=== PATIENT | female | born 1975 | race African-American/Black ===

== ENCOUNTER 2018-01-30 14:07 | Inpatient (IN) | payer OTHER ==
[~2018-01-30 14:07] MED LIST: cloNIDine-TTS 0.3 MG /24 HRS PATCH.TDWK TD SCH
--- NOTE | 2018-01-30 15:56 | PDOC ---
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 Patient states that this is associated with pain in the right lower aspect of her chest. Her shortness of breath is worsened with laying down. She denies fevers, chills, nausea, vomiting. Denies CHF history. Denies leg swelling. Patient states that she has been compliant with her dialysis and is at her dry weight. Past History - Past Medical History Allergies/Adverse Reactions: Allergies Allergy/AdvReac Type Severity Reaction Status Date / Time amoxicillin Allergy Rash Verified 01/30/18 14:26 COPD: No DVT: Yes (PE) Dialysis: Yes () GI Disorders: Yes (ESRD) HTN: Yes Other medical history: LUPUS - Suicide/Smoking/Psychosocial Hx Smoking History: Never smoked Review of Systems - Review of Systems Comments:: 01/30/18 15:54 GENERAL/CONSTITUTIONAL: No fever or chills. No weakness. HEAD, EYES, EARS, NOSE AND THROAT: No change in vision. No sore throat. CARDIOVASCULAR: Positive for chest pain and shortness of breath RESPIRATORY: No cough, wheezing, or hemoptysis. GASTROINTESTINAL: No nausea, vomiting, diarrhea or constipation. GENITOURINARY: No dysuria, frequency, or change in urination. MUSCULOSKELETAL: No joint or muscle swelling or pain. No neck or back pain. SKIN: No rash NEUROLOGIC: No headache, vertigo, loss of consciousness, or change in strength/ sensation. ENDOCRINE: No increased thirst. No abnormal weight change HEMATOLOGIC/LYMPHATIC: No anemia, easy bleeding, or history of blood clots. ALLERGIC/IMMUNOLOGIC: No hives or skin allergy. *Physical Exam - Vital Signs Last Vital Signs Temp Pulse Resp BP Pulse Ox 97.6 F 67 19 142/79 100 01/30/18 14:26 01/30/18 14:26 01/30/18 14:26 01/30/18 14:26 01/30/18 14:26 - Physical Exam Comments: 01/30/18 15:56 GENERAL: Awake, alert, and fully oriented, in no acute distress HEAD: No signs of trauma, normocephalic, atraumatic EYES: PERRLA, EOMI, sclera anicteric, conjunctiva clear ENT: Auricles normal inspection, hearing grossly normal, nares patent, oropharynx clear without exudates. Moist mucosa NECK: Normal ROM, supple, no lymphadenopathy, JVD, or masses LUNGS: No distress, speaks full sentences, clear to auscultation bilaterally HEART: Regular rate and rhythm, normal S1 and S2, no murmurs, rubs or gallops, peripheral pulses normal and equal bilaterally. ABDOMEN: Soft, nontender, normoactive bowel sounds. No guarding, no rebound. No masses EXTREMITIES: Normal inspection, Normal range of motion, no edema. No clubbing or cyanosis. NEUROLOGICAL: Cranial nerves II through XII grossly intact. Normal speech, normal gait, no focal sensorimotor deficits SKIN: Warm, Dry, normal turgor, no rashes or lesions noted. 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 Bed side ultrasound shows pleural effusion on right side. Will workup with cardiac workup. DDx includes, but is not limited to: CHF, pneumonia, cancer. 01/30/18 17:05 CXR shows possible pleural effusion. Laboratory Tests 01/30/18 01/30/18 01/30/18 15:30 15:30 15:30 WBC 6.3 Hgb 11.3 Plt Count 311 INR 1.35 H Potassium Creatinine Troponin I Serum , Qual Negative 01/30/18 15:30 WBC Hgb Plt Count INR Potassium 5.0 Creatinine 8.4 H* Troponin I < 0.02 Serum , Qual CBC normal. INR subtherapeutic. Serum preg negative. CMP shows ESRD, K is normal. Troponin is negative. Given subtherapeutic INR, will do CTA, patient will be dialyzed tomorrow. 01/30/18 19:[address] Maciel. *DC/Admit/Observation/Transfer Diagnosis at time of Disposition: Shortness of breath - Discharge Dispostion Condition at time of disposition: Stable - Referrals Referrals: Nahomy Simon [Primary Care Provider] - - Patient Instructions - Post Discharge Activity
[2018-01-30 16:13] LABS: HEMATOCRIT 33.9 % (32.4-45.2); HEMOGLOBIN 11.3 GM/dL (10.7-15.3); MCH 30.8 pg (25.7-33.7); MCHC 33.3 g/dl (32.0-36.0); MEAN CELL VOLUME 92.5 fl (80-96); PLATELET COUNT 311 K/MM3 (134-434); RBC 3.66 M/mm3 (3.60-5.2); RDW 14.9 % (11.6-15.6); WHITE BLOOD COUNT 6.3 K/mm3 (4.0-10.0)
[2018-01-30 16:25] LABS: INR 1.35 (0.82-1.09); PROTHROMBIN TIME (PATIENT) 15.3 SEC (9.7-13.0)
[2018-01-30 16:37] LABS: ALBUMIN 3.2 g/dl (3.4-5.0); ANION GAP 12 (8-16); BILIRUBIN,TOTAL 0.8 mg/dL (0.2-1.0); BLOOD UREA NITROGEN 44 mg/dL (7-18); CALCIUM 8.4 mg/dL (8.5-10.1); CHLORIDE 99 mmol/L (98-107); CO2 26 mmol/L (21-32); GLUCOSE,RANDOM 93 mg/dL (74-106); SGPT/ALT 21 U/L (12-78); SODIUM 137 mmol/L (136-145); TOT PROT 7.2 g/dl (6.4-8.2)
[2018-01-30 16:42] LABS: ALK PHOS 146 U/L (45-117)
[2018-01-30 16:47] LABS: MAGNESIUM 2.3 mg/dL (1.8-2.4)
[2018-01-30 16:48] LABS: SGOT/AST 30 U/L (15-37)
[2018-01-30 16:49] LABS: CREATININE 8.4 mg/dL (0.55-1.02)
[2018-01-30 16:52] LABS: ANISOCYTOSIS 1+; MACROCYTOSIS 1+; PLATELET ESTIMATE ADEQUATE
--- NOTE | 2018-01-30 16:54 | PDOC ---
Attending Attestation - HPI HPI: 01/30/18 17:11 The patient is a 42 year old female with history of lupus, hypertension, ESRD on HD [facility], PE with right pulmonary infarct s/p right lobectomy who presents to the ED complaining of shortness of breath that began last night. The patient states she has been experiencing intermittent chest pain for several days, resolved over the past 2 days. Chest pain began while she was resting doing nothing in particular. Last night, she began to notice shortness of breath that is worse with lying flat. She says it is somewhat similar with her past PE, although she experienced chest pain with her past PE. No chest pain today. The patient denies fever or chills. She denies nausea, vomiting, or diarrhea. States she is at her dry weight. - Physicial Exam PE: 01/30/18 17:15 Vitals: Triage vital signs reviewed General Appearance: No acute distress, well nourished, well developed Head: Atraumatic Eyes: Pupils equal reactive round, extraocular movement intact Neck: Supple; No nuchal rigidity Chest Wall: Nontender Cardiac: Regular rate and rhythm, no murmurs, no rubs, no gallops Lungs: Clear to auscultation bilaterally with mildly decreased breath sounds on the right side. Abdomen: Soft, nondistended, normal bowel sounds, nontender to palpation Extremities: Full range of motion to all extremities, no cyanosis, clubbing, or edema Skin: Warm and dry, no rashes or lesions, no rash, no petechiae Neuro: AOX3; Cranial Nerves 2-12 grossly intact, Strength intact to all extremities, Sensation intact to all extremities, gait normal Psych: Normal mood, normal affect - Medical Decision Making 01/30/18 17:16 The patient is a 42 year old female with history of lupus, hypertension, ESRD on HD [facility], PE with right pulmonary infarct s/p right lobectomy who presents to the ED complaining of shortness of breath that began last night. Documentation prepared by Jodie Nelson, acting as emergency medical service coordinator for Cesar Mathews MD. <Jodie Nelson - Last Filed: 01/30/18 17:11> - Resident Resident Name: Paolo Valdez - ED Attending Attestation I have performed the following: I have examined & evaluated the patient, The case was reviewed & discussed with the resident, I agree w/resident's findings & plan, Exceptions are as noted - Medical Decision Making 01/30/18 18:26 Right-sided pleural effusion noted on chest x-ray. Given subtherapeutic INR decision made to perform CTA to rule out PE CTA pending. to follow up and dispo 01/30/18 19:01 <Cesar Mathews - Last Filed: 01/30/18 19:02>
--- NOTE | 2018-01-30 19:14 | PDOC ---
*Physical Exam - Vital Signs Last Vital Signs Temp Pulse Resp BP Pulse Ox 97.6 F 64 18 159/77 98 01/30/18 14:26 01/30/18 17:52 01/30/18 17:52 01/30/18 17:52 01/30/18 17:52 ED Treatment Course - LABORATORY CBC & Chemistry Diagram: 01/30/18 15:30 01/30/18 15:30 - ADDITIONAL ORDERS Additional order review: Laboratory Results 01/30/18 01/30/18 01/30/18 15:30 15:30 15:30 PT with INR 15.30 H INR 1.35 H Sodium 137 Potassium 5.0 Chloride 99 Carbon Dioxide 26 Anion Gap 12 BUN 44 H Creatinine 8.4 H* Creat Clearance w eGFR 5.17 Random Glucose 93 Calcium 8.4 L Magnesium 2.3 Total Bilirubin 0.8 AST 30 ALT 21 Alkaline Phosphatase 146 H Creatine Kinase 106 Troponin I < 0.02 Total Protein 7.2 Albumin 3.2 L Serum , Qual Negative 01/30/18 15:30 RBC 3.66 MCV 92.5 MCHC 33.3 RDW 14.9 MPV 8.0 Neutrophils % No Result Required. Lymphocytes % No Result Required. 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 Signed out to me in stable condition pending results of CT chest for PE which only demonstrated a moderate right sided pleural effusion. Will treat with Vanc, Aztreonam, and admit to hospitalist. 01/30/18 20:26 *DC/Admit/Observation/Transfer Diagnosis at time of Disposition: Shortness of breath - Discharge Dispostion Condition at time of disposition: Stable - Referrals Referrals: Nahomy Simon [Primary Care Provider] - - Patient Instructions - Post Discharge Activity
[2018-01-30] MEDS ORDERED: VANCOMYCIN 1,000 MG in DEXTROSE 5%-WATER - 250 ML IVPB ONE (20:20)
[2018-01-30] MEDS ORDERED: AZTREONAM 1 GM VIAL (RESTRICTED TO ID) IVPB ONE (20:21)
--- NOTE | 2018-01-30 20:42 | EKG ---
Test Reason : Blood Pressure : / mmHG Vent. Rate : 069 BPM Atrial Rate : 069 BPM P-R Int : 242 ms QRS Dur : 094 ms QT Int : 452 ms P-R-T Axes : 059 074 -37 degrees QTc Int : 484 ms SINUS RHYTHM WITH 1ST DEGREE A-V BLOCK NONSPECIFIC T WAVE ABNORMALITY PROLONGED QT ABNORMAL ECG NO PREVIOUS ECGS AVAILABLE Confirmed by ELSY BANEGAS, MOE ([id number]) on 01/30/2018 8:42:12 PM Referred By: Confirmed By:MOE CHIN MD
[2018-01-30] MEDS ORDERED: NADOLOL 40 MG TABLET (FP) PO SCH (20:45)
[2018-01-30] MEDS ORDERED: LOSARTAN POTASSIUM 50 MG TABLET (FP) PO ONE (20:45)
[2018-01-30] MEDS ORDERED: VANCOMYCIN 1 GRAM (PRE-DOCKED) 1,000 MG/250 ML BAG IVPB ONE (20:56)
[2018-01-30] MEDS ORDERED: LOSARTAN POTASSIUM 25 MG TABLET ONE (20:56)
--- NOTE | 2018-01-30 21:39 | HP ---
CHIEF COMPLAINT: SOB PCP:Dr. Bonilla Client Executive: Dr. Quesada Dialysis center: [facility] for dialysis HISTORY OF PRESENT ILLNESS: 42 yr old woman with Lupus, HTN, ESRD on HD s/p failed living donor transplant( [id number]), hx of PE 2013 complicated by pulmonary infarct requiring right lobectomy in 2013 presents with few days of SOB. Started around Wednesday/ , worse when laying down. Not at sitting position, and no change with exercise tolerance. completed last HD on Wednesday without incident. Has been having repeated nasal staph infections about every 2-3 weeks for past 2 months being treated with 10-day courses of ceflacor by business objects consultant. recent increase in anti-HTN meds due to uncontrolled elevated blood pressure No fevers, cough, chest pain, back pain, wheezing. underwent pre-op workup(1-2 months ago) at [facility] to be placed on transplant list, including echo which she recalls as being normal. ER course was notable for: (1) CTA (2) CXY Recent Travel: none PAST MEDICAL HISTORY: Lupus HTN PE ESRD on HD since , received living donor transplant in 2000 when she went off HD, was placed back on HD in 2009 due to renal failure. not anuric, makes small amount of urine PAST SURGICAL HISTORY: right lobectomy kidney transplant @ [facility] in 2000 Social History: Smoking: denies Alcohol:denies Drugs: denies Family History: mother with lupus and HTN, grandmother with DM. grandmother with unknown type of cancer. denies coagulopathic disorders in the family Allergies amoxicillin Allergy (Verified 01/30/18 14:26) Rash HOME MEDICATIONS: Home Medications Medication Instructions Recorded Cinacalcet HCl [Sensipar] 30 mg PO HS 01/30/18 Clonidine Patch [Catapres Tts 0.3 mg TD WEEKLY 01/30/18 Patch -] Losartan Potassium [Cozaar -] 50 mg PO BID 01/30/18 Methylprednisolone [Medrol -] 4 mg PO HS 01/30/18 Nadolol 40 mg PO DAILY 01/30/18 Nifedipine [Nifedipine ER] 60 mg PO DAILY 01/30/18 Warfarin Na [Coumadin] 5 mg PO HS 01/30/18 REVIEW OF SYSTEMS CONSTITUTIONAL: Absent: fever, chills, diaphoresis, generalized weakness, malaise, loss of appetite, weight change HEENT: Present: one episode of difficulty swallowing to solids last week, no repeat episodes Absent: rhinorrhea, nasal congestion, throat pain, throat swelling,mouth swelling, eye pain, visual changes CARDIOVASCULAR: Absent: chest pain, syncope, palpitations, irregular heart rate, lightheadedness , peripheral edema RESPIRATORY: Present: orthopnea Absent: cough, shortness of breath, dyspnea with exertion, wheezing, stridor, hemoptysis GASTROINTESTINAL: Absent: abdominal pain, abdominal distension, nausea, vomiting, diarrhea, constipation, melena, hematochezia GENITOURINARY: Absent: dysuria, frequency, urgency, hesitancy, hematuria, flank pain, genital pain MUSCULOSKELETAL: Absent: myalgia, arthralgia, joint swelling, back pain, neck pain SKIN: Absent: rash, itching, pallor HEMATOLOGIC/IMMUNOLOGIC: Present: frequent infections Absent: easy bleeding, easy bruising, lymphadenopathy, ENDOCRINE: Absent: unexplained weight gain, unexplained weight loss, heat intolerance, cold intolerance NEUROLOGIC: Absent: headache, focal weakness or paresthesias, dizziness, unsteady gait, seizure, mental status changes, bladder or bowel incontinence PHYSICAL EXAMINATION Vital Signs - 24 hr 01/30/18 01/30/18 14:26 17:52 Temperature 97.6 F Pulse Rate 67 Pulse Rate [ 64 Apical] Respiratory 19 18 Rate Blood Pressure 142/79 Blood Pressure 159/77 [Left Calf] O2 Sat by Pulse 100 98 Oximetry (%) GENERAL: Awake, alert, and fully oriented, in no acute distress. HEAD: Normal with no signs of trauma. EYES: Pupils equal, round and reactive to light, extraocular movements intact, sclera anicteric, conjunctiva clear. No lid lag. EARS, NOSE, THROAT: Ears normal, nares patent, oropharynx clear without exudates. Moist mucous membranes. NECK: Normal range of motion, supple without lymphadenopathy, JVD, or masses. LUNGS: Breath sounds equal, clear to auscultation bilaterally. No wheezes, and no crackles. No accessory muscle use. HEART: Regular rate and rhythm, normal S1 and S2 without murmur, rub or gallop. ABDOMEN: Soft, nontender, not distended, normoactive bowel sounds, no guarding, no rebound, no masses. No hepatomegaly or splenomegaly. rlq fullness - location of transplant kidney MUSCULOSKELETAL: Normal range of motion at all joints. No bony deformities or tenderness. No CVA tenderness. UPPER EXTREMITIES: 2+ radial pulses, warm, well-perfused. No cyanosis. No clubbing. No peripheral edema. left arm with palpabe thrill and bruit at HD access LOWER EXTREMITIES: 2+ dp pulses, warm, well-perfused. No calf tenderness. No peripheral edema. NEUROLOGICAL: Cranial nerves II-XII intact. Normal speech.facial symmetry PSYCHIATRIC: Cooperative. Good eye contact. Appropriate mood and affect. SKIN: Warm, dry, normal turgor, no rashes or lesions noted, normal capillary refill. Laboratory Results - last 24 hr 01/30/18 01/30/18 01/30/18 15:30 15:30 15:30 WBC 6.3 RBC 3.66 Hgb 11.3 Hct 33.9 MCV 92.5 MCH 30.8 MCHC 33.3 RDW 14.9 Plt Count 311 MPV 8.0 Total Counted 100 Neutrophils % No Result Required. Neutrophils % (Manual) 61.0 Lymphocytes % No Result Required. Lymphocytes % (Manual) 18.0 Monocytes % (Manual) 18 H Eosinophils % (Manual) 1.0 Basophils % (Manual) 2.0 Nucleated RBC % 0 Differential Comment Man diff performed Platelet Estimate Adequate Platelet Comment Few giant plts noted Anisocytosis 1+ Macrocytosis 1+ PT with INR 15.30 H INR 1.35 H Sodium Potassium Chloride Carbon Dioxide Anion Gap BUN Creatinine Creat Clearance w eGFR Random Glucose Calcium Magnesium Total Bilirubin AST ALT Alkaline Phosphatase Creatine Kinase Troponin I Total Protein Albumin Serum , Qual Negative 01/30/18 15:30 WBC RBC Hgb Hct MCV MCH MCHC RDW Plt Count MPV Total Counted Neutrophils % Neutrophils % (Manual) Lymphocytes % Lymphocytes % (Manual) Monocytes % (Manual) Eosinophils % (Manual) Basophils % (Manual) Nucleated RBC % Differential Comment Platelet Estimate Platelet Comment Anisocytosis Macrocytosis PT with INR INR Sodium 137 Potassium 5.0 Chloride 99 Carbon Dioxide 26 Anion Gap 12 BUN 44 H Creatinine 8.4 H* Creat Clearance w eGFR 5.17 Random Glucose 93 Calcium 8.4 L Magnesium 2.3 Total Bilirubin 0.8 AST 30 ALT 21 Alkaline Phosphatase 146 H Creatine Kinase 106 Troponin I < 0.02 Total Protein 7.2 Albumin 3.2 L Serum , Qual Active Medications Cinacalcet (Sensipar -) 30 mg PO HS SAE Clonidine HCl (Catapres Tts Patch -) 0.3 mg TD Estrada@1000 SAE Losartan Potassium (Cozaar -) 50 mg PO BID SAE Methylprednisolone (Medrol -) 4 mg PO HS SAE Nadolol (Corgard -) 40 mg PO DAILY [facility] Last Admin: 01/30/18 21:00 Dose: 40 mg Nadolol (Corgard -) 40 mg PO DAILY SAE Nifedipine (Procardia Xl -) 60 mg PO DAILY [facility] ASSESSMENT/PLAN: 42 yr old woman with lupus, hx of PE, on HD presents with orthopnea found to have right-sided pleural effusion. #pleural effusion - unclear etiology - await full report of CTA - IR consulted for diagnotic tap - hold full AC, warfarin and heparin drip- concern that this is hemothorax in pt on warfarin and likely receiving heparin during dialysis, high risk for bleeding - will need to call dialysis center or business objects consultant to find out whether heparin was given with HD which may provide information on etiology of hemothorax - incentive spirometer to prevent atelectasis - received Abx in ED, monitor off abs for now, pt is afebrile, no leucocytosis, no s/s of infectious process, blood cx drawn in ED #Hx of PE on warfarin - currently subtherapeutic - call pcp or nephro for previous INR - hold therapeutic AC for now # Lupus - medrol 4mg po qHS daily #HTN - uncontrolled - continue clonidine patch 0.3mg qweekly, just placed recent patch on Wednesday - cozaar 50mg po BID - nadolol 40mg po daily - procardia xl 60mg po daily #ESRD on HD- Abak-sdnps-Hjp - consult dr. hall - sensipar 30mg po HS #DVT prophyaxis - scd's when in bed and hep tid subq #Diet: renal, low sodium Code status: full code Healthcare proxy - verbally designated to me; Mother (1)Payton Ta [phone], (2)Uncle [phone] offered HIV tested, pt declined, she was tested with pre-op work-up a [facility] recently and was negative Visit type - Emergency Visit Emergency Visit: Yes ED Registration Date: 01/30/18 Care time: The patient presented to the Emergency Department on the above date and was hospitalized for further evaluation of their emergent condition. - New Patient This patient is new to me today: Yes Date on this admission: 01/30/18 - Critical Care Critical Care patient: No Hospitalist Screening - Colonoscopy Questionnaire Colonoscopy Questionnaire: Colonoscopy Questionnaire - Patient: 50 - 75 years old and never had a screening colonoscopy: Unknown History of colon or rectal polyps, or CA: Unknown History of IBD, Crohn's disease or UC: Unknown History of abdominal radiation therapy as a child: Unknown - Relative: 1 with colon or rectal CA, or polyps at age 60 or younger: Unknown Colon or rectal CA diagnosed at age 45 or younger: Unknown Multiple relatives with colon or rectal CA: Unknown - Outcome: Screening Result: Negative Screen
--- NOTE | 2018-01-30 22:24 | PN ---
Teaching Attending Note Name of Resident: Jose Bowman ATTENDING PHYSICIAN STATEMENT I saw and evaluated the patient. I reviewed the resident's note and discussed the case with the resident. I agree with the resident's findings and plan as documented. SUBJECTIVE: Patient is a 42 year old woman with a chief complaint of SOB for 5 days. 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 Has been on coumadin. There has been associated intermittent chest pain and orthopnea. She denies fever or chills. She denies nausea, vomiting, or diarrhea. In the ER, CT scan showed right side pleaural effusion. OBJECTIVE: Alert and in no acute respiratory distress. Vital Signs Period Temp Pulse Resp BP Sys/William Pulse Ox Last 24 Hr 97.6 F 64-67 18-19 142-159/77-79 98-100 HEENT: No Jaundice, eye redness or discharge, PERRLA, EOMI. External ears are normal and hearing is grossly intact. No nasal discharge. Neck: Supple, nontender. No palpable adenopathy or thyromegaly. No JVD Chest: Good effort. Diminished breath sounds in right lung. Heart: Regular. No S3, rub or murmur Abdomen: Not distended, soft, nontender and no HSM. No rebound or guarding. Normoactive bowel sounds. Ext: Peripheral pulses intact. No leg edema. Left upper arm AV fistula with good thrill and bruit. Skin: Warm and dry. No petechiae, rash or ecchymosis. Neuro: Alert. Oriented x3. CN 2-12 grossly intact. Sensation grossly intact in all four extremities and DTR are symmetric. Current Medications Generic Name Dose Route Start Last Admin Trade Name Freq PRN Reason Stop Dose Admin Cinacalcet 30 mg 01/30/18 22:00 Sensipar - PO HS SAE Clonidine HCl 0.3 mg 01/30/18 10:00 Catapres Tts Patch - TD Estrada@1000 SAE Losartan Potassium 50 mg 01/30/18 22:00 Cozaar - PO BID SAE Methylprednisolone 4 mg 01/30/18 22:00 Medrol - PO HS SAE Nadolol 40 mg 01/30/18 20:45 01/30/18 21:00 Corgard - PO 40 mg DAILY SAE Administration Nadolol 40 mg 01/31/18 10:00 Corgard - PO DAILY [facility] Nifedipine 60 mg 01/31/18 10:00 Procardia Xl - PO DAILY [facility] Current Medications Generic Name Dose Route Start Last Admin Trade Name Trinoq PRN Reason Stop Dose Admin Cinacalcet 30 mg 01/30/18 22:00 Sensipar - PO HS [facility] Clonidine HCl 0.3 mg 01/30/18 10:00 Catapres Tts Patch - TD Estrada@1000 SAE Losartan Potassium 50 mg 01/30/18 22:00 Cozaar - PO BID SAE Methylprednisolone 4 mg 01/30/18 22:00 Medrol - PO HS [facility] Nadolol 40 mg 01/30/18 20:45 01/30/18 21:00 Corgard - PO 40 mg DAILY SAE Administration Nadolol 40 mg 01/31/18 10:00 Corgard - PO DAILY [facility]E Nifedipine 60 mg 01/31/18 10:00 Procardia Xl - PO DAILY [facility] Home Medications Medication Instructions Recorded Cinacalcet HCl [Sensipar] 30 mg PO HS 01/30/18 Clonidine Patch [Catapres Tts 0.3 mg TD WEEKLY 01/30/18 Patch -] Losartan Potassium [Cozaar -] 50 mg PO BID 01/30/18 Methylprednisolone [Medrol -] 4 mg PO HS 01/30/18 Nadolol 40 mg PO DAILY 01/30/18 Nifedipine [Nifedipine ER] 60 mg PO DAILY 01/30/18 Warfarin Na [Coumadin] 5 mg PO HS 01/30/18 Laboratory Results - last 24 hr 01/30/18 01/30/18 01/30/18 15:30 15:30 15:30 WBC 6.3 RBC 3.66 Hgb 11.3 Hct 33.9 MCV 92.5 MCH 30.8 MCHC 33.3 RDW 14.9 Plt Count 311 MPV 8.0 Total Counted 100 Neutrophils % No Result Required. Neutrophils % (Manual) 61.0 Lymphocytes % No Result Required. Lymphocytes % (Manual) 18.0 Monocytes % (Manual) 18 H Eosinophils % (Manual) 1.0 Basophils % (Manual) 2.0 Nucleated RBC % 0 Differential Comment Man diff performed Platelet Estimate Adequate Platelet Comment Few giant plts noted Anisocytosis 1+ Macrocytosis 1+ PT with INR 15.30 H INR 1.35 H Sodium Potassium Chloride Carbon Dioxide Anion Gap BUN Creatinine Creat Clearance w eGFR Random Glucose Calcium Magnesium Total Bilirubin AST ALT Alkaline Phosphatase Creatine Kinase Troponin I Total Protein Albumin Serum , Qual Negative 01/30/18 15:30 WBC RBC Hgb Hct MCV MCH MCHC RDW Plt Count MPV Total Counted Neutrophils % Neutrophils % (Manual) Lymphocytes % Lymphocytes % (Manual) Monocytes % (Manual) Eosinophils % (Manual) Basophils % (Manual) Nucleated RBC % Differential Comment Platelet Estimate Platelet Comment Anisocytosis Macrocytosis PT with INR INR Sodium 137 Potassium 5.0 Chloride 99 Carbon Dioxide 26 Anion Gap 12 BUN 44 H Creatinine 8.4 H* Creat Clearance w eGFR 5.17 Random Glucose 93 Calcium 8.4 L Magnesium 2.3 Total Bilirubin 0.8 AST 30 ALT 21 Alkaline Phosphatase 146 H Creatine Kinase 106 Troponin I < 0.02 Total Protein 7.2 Albumin 3.2 L Serum , Qual ASSESSMENT AND PLAN: 1. Pleural effusion - Patient will be admitted as an inpatient for clarification and treatment of effusion. Although she is at risk for pulmonary embolism (Remote PE, ESRD, ?SLE, and subtherapeutic INR), there is a concern that her "effusion" may be a hemothorax - thus the risk of empiric anticoagulation without confirmed pulmonary embolism, outweighs the benefits. She probably gets heparin thrice weekly during hemodialysis and may still be at risk for "bleeding" despite subtherapeutic INR. Will get thoracentesis STAT tomorrow morning. Based on the results of thoracentesis, then the decision will be made to fully anticoagulate or not. Furthermore, we will withhold treatment with antibiotics at this time because there is no overt evidence of bacterial chest infection. 2. SLE - Continue regular regimen. Patient counseled to discuss tapering medrol dose with her PCP since she does not have frequent lupus flareups. 3. Multiple antihypertensive medications - may benefit from escalating controlled dialytic fluid removal to control her BP better and thus reduce her number of antihypertensive drugs. 4. ESRD - Consult nephrology and continue thrice weekly hemodialysis. 5. DVT prophylaxis - Heparin 5000u sq tid 6. Advance directives - Full code
[2018-01-31] MEDS: methylPREDNISolone 4 MG TABLET PO SCH ×2 (00:30→21:30)
[2018-01-31] MEDS: CINACALCET HCL 30 MG TAB (FP) PO SCH ×2 (00:30→21:29)
[2018-01-31] MEDS: LOSARTAN POTASSIUM 50 MG TABLET (FP) PO SCH ×3 (00:36→21:29)
[2018-01-31] MEDS ORDERED: hydrALAZINE HCL 20 MG/ML VIAL IVPUSH ONE (00:37)
[2018-01-31] MEDS ORDERED: NIFEdipine E.R. 30 MG TABLET (FP) PO ONE (01:05)
[2018-01-31] MEDS ORDERED: HEPARIN NA (PORCINE) 5,000 UNITS/ML 1ML VIAL SQ SCH (06:00)
[2018-01-31 08:04] LABS: BASO % 1.2 % (0-2.0); EOS % 1.1 % (0-4.5); HEMATOCRIT 33.7 % (32.4-45.2); HEMOGLOBIN 11.2 GM/dL (10.7-15.3); LYMPH % 11.7 % (8-40); MCH 30.9 pg (25.7-33.7); MCHC 33.4 g/dl (32.0-36.0); MEAN CELL VOLUME 92.4 fl (80-96); MEAN PLT VOLUME 7.5 fl (7.5-11.1); PLATELET COUNT 353 K/MM3 (134-434); RBC 3.64 M/mm3 (3.60-5.2); RDW 14.9 % (11.6-15.6); WHITE BLOOD COUNT 6.6 K/mm3 (4.0-10.0)
[2018-01-31 08:20] LABS: INR 1.48 (0.82-1.09); PROTHROMBIN TIME (PATIENT) 16.7 SEC (9.7-13.0)
[2018-01-31 08:22] LABS: ACTIVATED PTT 42.3 SECONDS (26.9-34.4)
[2018-01-31] MEDS ORDERED: PT OWN MED DRAWER 7, Y5N ONE ×2 (09:17→21:24)
[2018-01-31] MEDS: NIFEdipine E.R. 30 MG TABLET (FP) PO SCH (09:18)
[2018-01-31] MEDS: NADOLOL 40 MG TABLET (FP) PO SCH (09:19)
[2018-01-31 09:29] LABS: ALBUMIN 3.3 g/dl (3.4-5.0); ANION GAP 9 (8-16); BILIRUBIN,TOTAL 0.6 mg/dL (0.2-1.0); BLOOD UREA NITROGEN 53 mg/dL (7-18); CALCIUM 8.3 mg/dL (8.5-10.1); CHLORIDE 99 mmol/L (98-107); CO2 24 mmol/L (21-32); GLUCOSE,RANDOM 97 mg/dL (74-106); MAGNESIUM 2.5 mg/dL (1.8-2.4); PHOSPHOROUS 6.7 mg/dL (2.5-4.9); POTASSIUM 5.7 mmol/L (3.5-5.1); SGOT/AST 22 U/L (15-37); SGPT/ALT 19 U/L (12-78); SODIUM 132 mmol/L (136-145); TOT PROT 7.3 g/dl (6.4-8.2)
[2018-01-31 09:30] LABS: ALK PHOS 153 U/L (45-117)
[2018-01-31 09:35] LABS: CREATININE 9.6 mg/dL (0.55-1.02)
--- NOTE | 2018-01-31 09:49 | PN ---
Progress Note (short form) - Note Progress Note: c/o SOB worse when laying down some assoc chest discomfort on deep inspiration. denies Cp, SOB, fever, chills, cough, N/V/C/D denies any trauma to the chest falling or banging into something Current Medications Generic Name Dose Route Start Last Admin Trade Name Freq PRN Reason Stop Dose Admin Cinacalcet 30 mg 01/30/18 22:00 01/31/18 00:30 Sensipar - PO 30 mg HS SAE Administration Clonidine HCl 0.3 mg 01/30/18 10:00 Catapres Tts Patch - TD Estrada@1000 SAE Heparin Sodium (Porcine) 5,000 unit 01/31/18 06:00 01/31/18 05:59 Heparin - SQ 5,000 unit TID SAE Administration Losartan Potassium 50 mg 01/30/18 22:00 01/31/18 09:18 Cozaar - PO 50 mg BID SAE Administration Methylprednisolone 4 mg 01/30/18 22:00 01/31/18 00:30 Medrol - PO 4 mg HS SAE Administration Nadolol 40 mg 01/31/18 10:00 01/31/18 09:19 Corgard - PO 40 mg DAILY SAE Administration Nifedipine 60 mg 01/31/18 10:00 01/31/18 09:18 Procardia Xl - PO 60 mg DAILY SAE Administration Last Vital Signs Temp Pulse Resp BP Pulse Ox 98.2 F 63 16 170/78 98 01/31/18 05:30 01/31/18 05:30 01/31/18 05:30 01/31/18 05:30 01/31/18 03:00 General NAD CV S1 s2 RRR no murmur/rub/gallop Lungs decreased breath sounds R base, good inspiratory effort abdomen soft NT/ND Extremities no pedal edema +palpable thrill LUE CBCD WBC 6.6 K/mm3 (4.0-10.0) 01/31/18 07:45 RBC 3.64 M/mm3 (3.60-5.2) 01/31/18 07:45 Hgb 11.2 GM/dL (10.7-15.3) 01/31/18 07:45 Hct 33.7 % (32.4-45.2) 01/31/18 07:45 MCV 92.4 fl (80-96) 01/31/18 07:45 MCHC 33.4 g/dl (32.0-36.0) 01/31/18 07:45 RDW 14.9 % (11.6-15.6) 01/31/18 07:45 Plt Count 353 K/MM3 (134-434) 01/31/18 07:45 MPV 7.5 fl (7.5-11.1) 01/31/18 07:45 CMP Sodium 132 mmol/L (136-145) L 01/31/18 07:45 Potassium 5.7 mmol/L (3.5-5.1) H 01/31/18 07:45 Chloride 99 mmol/L (98-107) 01/31/18 07:45 Carbon Dioxide 24 mmol/L (21-32) 01/31/18 07:45 Anion Gap 9 (8-16) 01/31/18 07:45 BUN 53 mg/dL (7-18) H 01/31/18 07:45 Creatinine 9.6 mg/dL (0.55-1.02) H* 01/31/18 07:45 Creat Clearance w eGFR 4.43 (>60) 01/31/18 07:45 Calcium 8.3 mg/dL (8.5-10.1) L 01/31/18 07:45 Total Bilirubin 0.6 mg/dL (0.2-1.0) D 01/31/18 07:45 AST 22 U/L (15-37) 01/31/18 07:45 ALT 19 U/L (12-78) 01/31/18 07:45 Alkaline Phosphatase 153 U/L (45-117) H 01/31/18 07:45 Total Protein 7.3 g/dl (6.4-8.2) 01/31/18 07:45 Albumin 3.3 g/dl (3.4-5.0) L 01/31/18 07:45 A/P 42yo F with PMH SLE, HTN, ESRD on HD, PE s/p R lobectomy on coumadin presented with SOB x5 days assoc with CP and orthopnea 1. R pleural effusion-saturating well on RA. seen on CTA. as per [facility] reading no PE and R pleural effusion. will need to ensure not a hemothorax although low suspicion. with subtherapeutic INR. consult pulmonary. thoracentesis tomorrow by IR. 2. Hyperkalemia- liekly due to kidneys. possible HD today. will repeat later today 3. HTN- uncontrolled. antihypertensives were adjusted 2 days ago. pt states that this BP is much improved than her baseline and typically have SBP 200's. will cont home regimen 4. ESRD on HD-(TTS). tolerated last HD on sat without problems. may benefit from HD today as received contrast last night. will wait for nephrology 5. PE s/p R lobectomy- on coumadin with subtherpeutic INR. seems INR is labile and takes coumadin 3-5mg pending on her INR. last check last week on 01/27 was 2.6. believes she missed her dose on wednesday and did not receive her dose yesterday. states she was never offered NOAC. had hypercoagulability workup and was negative and was told she wll need lifelong a/c. will ensure CTA does not show hemathorax. if negative will start hep ggt. hold coumadin for pending thoracentesis tomorrow 5. SLE- cont steroids 6. DVT ppx- hep sq Visit type - Emergency Visit Emergency Visit: Yes ED Registration Date: 01/30/18 Care time: The patient presented to the Emergency Department on the above date and was hospitalized for further evaluation of their emergent condition. - New Patient This patient is new to me today: Yes Date on this admission: 01/31/18 - Critical Care Critical Care patient: No - Discharge Referral Referred to [facility] No
[2018-01-31] MEDS ORDERED: HEPARIN NA (PORCINE) 5,000 UNITS/ML 1ML VIAL IVPUSH PRN ×2 (11:21)
--- NOTE | 2018-01-31 12:43 | CON.NEP ---
Consult Consult Specialty:: nephrology Referred by:: rusty Reason for Consultation:: esrd on hd - History of Present Illness Chief Complaint: sob History of Present Illness: sob s/p cta h/o pleural effusions remote h/o pte - Past Medical History ...: No - Alcohol/Substance Use Hx Alcohol Use: No - Smoking History Smoking history: Never smoked Home Medications - Allergies Allergies/Adverse Reactions: Allergies Allergy/AdvReac Type Severity Reaction Status Date / Time amoxicillin Allergy Rash Verified 01/30/18 14:26 - Home Medications Home Medications: Ambulatory Orders Cinacalcet HCl [Sensipar] 30 mg PO HS 01/30/18 Clonidine Patch [Catapres Tts Patch -] 0.3 mg TD WEEKLY 01/30/18 Losartan Potassium [Cozaar -] 50 mg PO BID 01/30/18 Methylprednisolone [Medrol -] 4 mg PO HS 01/30/18 Nadolol 40 mg PO DAILY 01/30/18 Nifedipine [Nifedipine ER] 60 mg PO DAILY 01/30/18 Warfarin Na [Coumadin] 5 mg PO HS 01/30/18 Nephrology Consult - Height Height: 5 ft 5 in - Weight Weight: 135 lb 1.6 oz - BMI Body Mass Index (BMI): 22.4 - Lab Results CBC,BMP: CBC, BMP 01/31/18 07:45 01/31/18 07:45 Anion Gap: Anion Gap Anion Gap 9 (8-16) 01/31/18 07:45 - Physical Examination Vital Signs: Vital Signs Temperature 98.2 F 01/31/18 08:00 Pulse Rate 66 01/31/18 08:00 Respiratory Rate 20 01/31/18 08:00 Blood Pressure 150/78 01/31/18 08:00 O2 Sat by Pulse Oximetry (%) 98 01/31/18 08:00 Constitutional: Yes: Thin Eyes: Yes: WNL, Conjunctiva Clear, EOM Intact HENT: Yes: WNL, Atraumatic, Normocephalic Neck: Yes: WNL, Supple, Trachea Midline Cardiovascular: Yes: WNL, Regular Rate and Rhythm Respiratory: Yes: WNL, Regular, CTA Bilaterally Gastrointestinal: Yes: WNL, Normal Bowel Sounds Access for Hemodialysis: AV Fistula (left forearm) Musculoskeletal: Yes: WNL Extremities: Yes: WNL Edema: No Peripheral Pulses WNL: Yes Integumentary: Yes: WNL Neurological: Yes: WNL, Alert, Oriented Psychiatric: Yes: WNL, Alert, Oriented Assessment/Plan esrd s/p cta mild sob and orthopnea will dialyze today
[2018-01-31 12:44] VITALS: BMI 22.4
[2018-01-31] MEDS: HEPARIN SOD,PORK IN 0.45% NACL 25,000 UNIT/500 ML INFUS.BAG IVPB SCH (12:46)
--- NOTE | 2018-01-31 13:15 | CON.PULM ---
Consult Consult Specialty:: PULMONARY Referred by:: Dr. Brush Reason for Consultation:: shortness of breath - History of Present Illness Chief Complaint: shortness of breath History of Present Illness: 42yo female with h/o HTN, lupus, ESRD on HD, h/o PE with extensive pulmonary infarct s/p RLL lobectomy 2013 now on lifelong anticoagulation who was admitted with worsening shortness of breath x 5 days. No fevers, chills or sweats. States breathing worse with lying down. Occasional left sided chest pain difficult to characterize but maybe sharp which only lasts short time. Occasional wheezing and nonproductive cough. Had asthma as child but no symptoms since age 8. Does report a viral illness about 1 month ago and was given antibiotics. Maintained on medrol 4mg daily for her lupus. On renal transplant list at [facility]. Subtherapeutic INR on admission, started on heparin gtt. CTA chest without evidence of PE but showing small bilateral effusions, loculated right effusion and small pericardial effusion. She is a never smoker. - History Source History Provided By: Patient, Medical Record Limitations to Obtaining History: No Limitations - Past Medical History Cardio/Vascular: Yes: HTN Renal/: Yes: Other (esrd) ...: No Rheumatology: Yes: Lupus - Alcohol/Substance Use Hx Alcohol Use: No - Smoking History Smoking history: Never smoked Home Medications - Allergies Allergies/Adverse Reactions: Allergies Allergy/AdvReac Type Severity Reaction Status Date / Time amoxicillin Allergy Rash Verified 01/30/18 14:26 - Home Medications Home Medications: Ambulatory Orders Cinacalcet HCl [Sensipar] 30 mg PO HS 01/30/18 Clonidine Patch [Catapres Tts Patch -] 0.3 mg TD WEEKLY 01/30/18 Losartan Potassium [Cozaar -] 50 mg PO BID 01/30/18 Methylprednisolone [Medrol -] 4 mg PO HS 01/30/18 Nadolol 40 mg PO DAILY 01/30/18 Nifedipine [Nifedipine ER] 60 mg PO DAILY 01/30/18 Warfarin Na [Coumadin] 5 mg PO HS 01/30/18 Review of Systems - Review of Systems Constitutional: reports: Weakness. denies: Chills, Fever Eyes: denies: Recent Change in Vision HENT: denies: Nasal Congestion, Throat Pain Neck: denies: Stiffness, Tenderness Cardiovascular: reports: Chest Pain, Shortness of Breath. denies: Edema, Palpitations Respiratory: reports: Cough, Orthopnea, SOB on Exertion, Wheezing. denies: Hemoptysis Gastrointestinal: denies: Abdominal Pain, Nausea, Vomiting Genitourinary: denies: Dysuria, Hematuria Neurological: denies: Dizziness, Headache Endocrine: denies: Unexplained Weight Loss Physical Exam Vital Sings: Vital Signs Temperature 98.2 F 01/31/18 08:00 Pulse Rate 66 01/31/18 08:00 Respiratory Rate 20 01/31/18 08:00 Blood Pressure 150/78 01/31/18 08:00 O2 Sat by Pulse Oximetry (%) 98 01/31/18 08:00 Constitutional: Yes: Calm Eyes: Yes: Conjunctiva Clear, EOM Intact HENT: Yes: Atraumatic, Normocephalic Neck: Yes: Supple, Trachea Midline Cardiovascular: Yes: Regular Rate and Rhythm Respiratory: Yes: Regular, Diminished (decreased breath sounds at the bases) ...Clubbing: No Gastrointestinal: Yes: Normal Bowel Sounds, Soft. No: Tenderness Edema: No Neurological: Yes: Alert, Oriented Labs: CBC, BMP 01/31/18 07:45 01/31/18 07:45 Imaging - Results Chest X-ray: Report Reviewed, Image Reviewed Cat Scan: Report Reviewed, Image Reviewed (small bilateral pleural effusions, pericardial effusion, loculated right pleural effusion) Problem List - Problems (1) Shortness of breath Code(s): R06.02 - SHORTNESS OF BREATH (2) Pleural effusion Code(s): J90 - PLEURAL EFFUSION, NOT ELSEWHERE CLASSIFIED (3) ESRD (end stage renal disease) Code(s): N18.6 - END STAGE RENAL DISEASE (4) SLE (systemic lupus erythematosus) Code(s): M32.9 - SYSTEMIC LUPUS ERYTHEMATOSUS, UNSPECIFIED Assessment/Plan Shortness of breath Small Pleural Effusions ESRD on HD Mild Volume Overload Lupus h/o PE/pulmonary infarct s/p RLL lobectomy - continue anticoagulation bridge from heparin gtt to coumadin, target INR 2-3 - effusions appear too small and loculated to sample, would defer thoracentesis at this time - HD per renal with increased ultrafiltration - echocardiogram - prior imaging from [facility] would be helpful to compare - O2 to keep SpO2 >90% - lower suspicion but will check DEE DEE, ESR, CRP to r/o serositis given last month's viral illness Thank you for this consult Erich Lester MD
[2018-01-31] MEDS ORDERED: ACETAMINOPHEN 325 MG TABLET (FP) PO ONE (21:28)
[2018-01-31] MEDS: WARFARIN NA 5 MG TABLET (UD) PO SCH (21:29)
[2018-01-31 21:38] LABS: INR 1.5 (0.82-1.09)
[2018-02-01] MEDS ORDERED: PT OWN MED DRAWER 7, Y5N ONE ×2 (10:47→21:45)
[2018-02-01] MEDS: LOSARTAN POTASSIUM 50 MG TABLET (FP) PO SCH ×2 (10:49→21:48)
[2018-02-01] MEDS: NIFEdipine E.R. 30 MG TABLET (FP) PO SCH (10:49)
[2018-02-01] MEDS: NADOLOL 40 MG TABLET (FP) PO SCH (10:50)
--- NOTE | 2018-02-01 13:32 | PN ---
Progress Note (short form) - Note Progress Note: Sitting in the chair. NAD on RA, saturation 98%. Breathing feels overall better. No acute events overnight. Intake & Output 01/29/18 01/30/18 01/31/18 02/01/18 23:59 23:59 23:59 23:59 Intake Total 946 183 Output Total 0 Balance 946 183 Weight 132 lb 135 lb 1.6 oz 131 lb 8 oz Last Vital Signs Temp Pulse Resp BP Pulse Ox 97.8 F 69 17 159/99 98 02/01/18 08:30 02/01/18 08:30 02/01/18 08:30 02/01/18 08:30 02/01/18 06:00 Active Medications Cinacalcet (Sensipar -) 30 mg PO HS [facility] Last Admin: 01/31/18 21:29 Dose: 30 mg Clonidine HCl (Catapres Tts Patch -) 0.3 mg TD Estrada@1000 SAE Heparin Sodium (Porcine) (Heparin -) 1,000 unit IVPUSH PRN PRN PRN Reason: Heparin Heparin Sodium (Porcine) (Heparin -) 5,000 unit IVPUSH PRN PRN PRN Reason: Heparin HEPARIN SOD,PORK IN 0.45% NACL (Heparin-1/2ns 25,000 Units/500) 25,000 unit in 500 mls @ 16 mls/hr IVPB TITR SAE; Protocol Last Admin: 02/01/18 13:36 Dose: Not Given Losartan Potassium (Cozaar -) 50 mg PO BID [facility] Last Admin: 02/01/18 10:49 Dose: 50 mg Methylprednisolone (Medrol -) 4 mg PO HS [facility] Last Admin: 01/31/18 21:30 Dose: 4 mg Nadolol (Corgard -) 40 mg PO DAILY [facility] Last Admin: 02/01/18 10:50 Dose: 40 mg Nifedipine (Procardia Xl -) 60 mg PO DAILY [facility] Last Admin: 02/01/18 10:49 Dose: 60 mg Warfarin Sodium (Coumadin -) 5 mg PO DAILY@1800 [facility] Last Admin: 01/31/18 21:29 Dose: 5 mg Constitutional: Yes: NAD Eyes: Yes: Conjunctiva Clear, EOM Intact HENT: Yes: Atraumatic, Normocephalic Neck: Yes: Supple, Trachea Midline Cardiovascular: Yes: Regular Rate and Rhythm Respiratory: Yes: Clear ...Clubbing: No Gastrointestinal: Yes: Normal Bowel Sounds, Soft. No: Tenderness Edema: No Neurological: Yes: Alert, Oriented Labs: Laboratory Results - last 24 hr 01/31/18 01/31/18 01/31/18 14:25 14:25 19:00 ESR 32 H PT with INR 17.00 H INR 1.50 H PTT (Actin FS) C-Reactive Protein 0.5 H 01/31/18 02/01/18 19:35 03:15 ESR PT with INR INR PTT (Actin FS) 105.4 H D 63.7 H D C-Reactive Protein Problem List - Problems (1) Shortness of breath Code(s): R06.02 - SHORTNESS OF BREATH (2) Pleural effusion Code(s): J90 - PLEURAL EFFUSION, NOT ELSEWHERE CLASSIFIED (3) ESRD (end stage renal disease) Code(s): N18.6 - END STAGE RENAL DISEASE (4) SLE (systemic lupus erythematosus) Code(s): M32.9 - SYSTEMIC LUPUS ERYTHEMATOSUS, UNSPECIFIED Assessment/Plan Shortness of breath Small Pleural Effusions ESRD on HD Mild Volume Overload Lupus h/o PE/pulmonary infarct s/p RLL lobectomy - AC heparin / coumadin INR 2-3 - effusions appear too small and loculated to sample, would defer thoracentesis at this time - HD per renal with increased ultrafiltration - Check echocardiogram - prior imaging from [facility] would be helpful to compare - O2 to keep SpO2 >90% - No Pulmonary contraindication for D/C planning Dr Camp
[2018-02-01] MEDS: HEPARIN SOD,PORK IN 0.45% NACL 25,000 UNIT/500 ML INFUS.BAG IVPB SCH (13:36)
--- NOTE | 2018-02-01 16:17 | PN ---
Progress Note (short form) - Note Progress Note: Renal follow up for ESRD on HD Pt seen and examined at the bedside no acute complaints feels better but not all the way back to normal no cough, fever, chills, N/V/D, CP Vital Signs Temperature 97.4 F L 02/01/18 14:00 Pulse Rate 64 02/01/18 14:00 Respiratory Rate 20 02/01/18 14:00 Blood Pressure 165/98 02/01/18 14:00 O2 Sat by Pulse Oximetry (%) 98 02/01/18 06:00 Intake & Output 01/29/18 01/30/18 01/31/18 02/01/18 23:59 23:59 23:59 23:59 Intake Total 946 583 Output Total 0 0 Balance 946 583 Weight 59.874 kg 61.28 kg 59.647 kg NAD CTA no LE edema CBC, BMP 01/31/18 07:45 01/31/18 07:45 Current Medications Cinacalcet (Sensipar -) 30 mg PO HS [facility] Last Admin: 01/31/18 21:29 Dose: 30 mg Clonidine HCl (Catapres Tts Patch -) 0.3 mg TD Estrada@1000 SAE Heparin Sodium (Porcine) (Heparin -) 1,000 unit IVPUSH PRN PRN PRN Reason: Heparin Heparin Sodium (Porcine) (Heparin -) 5,000 unit IVPUSH PRN PRN PRN Reason: Heparin HEPARIN SOD,PORK IN 0.45% NACL (Heparin-1/2ns 25,000 Units/500) 25,000 unit in 500 mls @ 16 mls/hr IVPB TITR SAE; Protocol Last Admin: 02/01/18 13:36 Dose: Not Given Losartan Potassium (Cozaar -) 50 mg PO BID [facility] Last Admin: 02/01/18 10:49 Dose: 50 mg Methylprednisolone (Medrol -) 4 mg PO HS [facility] Last Admin: 01/31/18 21:30 Dose: 4 mg Nadolol (Corgard -) 40 mg PO DAILY [facility] Last Admin: 02/01/18 10:50 Dose: 40 mg Nifedipine (Procardia Xl -) 60 mg PO DAILY [facility] Last Admin: 02/01/18 10:49 Dose: 60 mg Warfarin Sodium (Coumadin -) 5 mg PO DAILY@1800 [facility] Last Admin: 01/31/18 21:29 Dose: 5 mg 42 year old woman with PMhx of ESRD on HD, Hx of Renal transplant with chronc allograft nephropathy, Lupus, Hypertension who presented with SOB #ERSD on HD #Hx of PE on A/C #SOB with small pleural effusions #Hypertensoin no acute indication for dialysis next dialysis is planned for continue steroids for Lupus f/u ECHO CTA showed no active PE on Heparin gtt Thank you Jassi Sung DO
[2018-02-01] MEDS: WARFARIN NA 5 MG TABLET (UD) PO SCH (17:10)
--- NOTE | 2018-02-01 17:32 | PN ---
Teaching Attending Note Name of Resident: Gurmeet Ward ATTENDING PHYSICIAN STATEMENT I saw and evaluated the patient. I reviewed the resident's note and discussed the case with the resident. I agree with the resident's findings and plan as documented. SUBJECTIVE: patient has no complaints. OBJECTIVE: Vital Signs Period Temp Pulse Resp BP Sys/William Pulse Ox Last 24 Hr 97.4 F-98.6 F 60-656 17-20 136-165/63-99 98-98 HEART: S1S2, RRR LUNGS: Clear ABDOMEN: Soft, non-tender, non-distended, normal BS EXTREMITIES: No edema Laboratory Results - last 24 hr 01/31/18 01/31/18 02/01/18 19:00 19:35 03:15 PT with INR 17.00 H INR 1.50 H PTT (Actin FS) 105.4 H D 63.7 H D Current Medications Generic Name Dose Route Start Last Admin Trade Name Freq PRN Reason Stop Dose Admin Cinacalcet 30 mg 01/30/18 22:00 01/31/18 21:29 Sensipar - PO 30 mg HS SAE Administration Clonidine HCl 0.3 mg 01/30/18 10:00 Catapres Tts Patch - TD Estrada@1000 SAE Heparin Sodium (Porcine) 1,000 unit 01/31/18 11:21 Heparin - IVPUSH PRN PRN Heparin Heparin Sodium (Porcine) 5,000 unit 01/31/18 11:21 Heparin - IVPUSH PRN PRN Heparin HEPARIN SOD,PORK IN 0.45% NACL 25,000 unit in 500 mls @ 16 mls/hr 01/31/18 11: 30 02/01/18 13:36 Heparin-1/2ns 25,000 Units/500 IVPB Not Given TITR SAE Protocol 800 UNITS/HR Losartan Potassium 50 mg 01/30/18 22:00 02/01/18 10:49 Cozaar - PO 50 mg BID SAE Administration Methylprednisolone 4 mg 01/30/18 22:00 01/31/18 21:30 Medrol - PO 4 mg HS SAE Administration Nadolol 40 mg 01/31/18 10:00 02/01/18 10:50 Corgard - PO 40 mg DAILY SAE Administration Nifedipine 60 mg 01/31/18 10:00 02/01/18 10:49 Procardia Xl - PO 60 mg DAILY SAE Administration Warfarin Sodium 5 mg 01/31/18 18:00 02/01/18 17:10 Coumadin - PO 5 mg DAILY@1800 [facility] Administration ASSESSMENT AND PLAN: This is a 42 year old woman with a history of SLE, HTN, ESRD, PE, right lobectomy who presented to the ED with CP and SOB. 1. SOB - Possible secondary to fluid overload - Improved 2. Small bilateral pleural effusions - No indication for thoracentesis 3. Hyperkalemia secondary to ESRD 4. HTN - Continue Cozaar, Coreg, Procardia XL, Catapres patch 5. ESRD - Continue HD as per nephrology - Continue Sensipar 6. History of PE, right lobectomy - On Coumadin - Continue heparin IV drip until INR therapeutic 7. SLE - Continue Medrol 8. Disposition - Discharge once INR therapeutic
--- NOTE | 2018-02-01 17:49 | PN ---
Physical Exam: SUBJECTIVE: No acute events overnight. No problems today OBJECTIVE: Vital Signs Period Temp Pulse Resp BP Sys/William Pulse Ox Last 24 Hr 97.4 F-98.6 F 60-656 17-20 136-165/67-99 98-98 GENERAL: NAD, awake, alert, and fully oriented HEENT: EOMI, FIDENCIO, moist mucosa LUNGS: Diminished breath sounds RLL, no wheezes, no crackles, no accessory muscle use. HEART: RRR, S1, S2 without murmur ABDOMEN: Soft, NT/ND, normoactive bowel sounds, no guarding, no hepatomegaly EXTREMITIES: 2+ DP pulses, warm, no edema. PSYCH: Normal mood, normal affect. SKIN: Warm, dry, no rashes or lesions noted Laboratory Results - last 24 hr 01/31/18 01/31/18 02/01/18 19:00 19:35 03:15 PT with INR 17.00 H INR 1.50 H PTT (Actin FS) 105.4 H D 63.7 H D Active Medications Generic Name Dose Route Start Last Admin Trade Name Freq PRN Reason Stop Dose Admin Cinacalcet 30 mg 01/30/18 22:00 01/31/18 21:29 Sensipar - PO 30 mg HS SAE Administration Clonidine HCl 0.3 mg 01/30/18 10:00 Catapres Tts Patch - TD Estrada@1000 SAE Heparin Sodium (Porcine) 1,000 unit 01/31/18 11:21 Heparin - IVPUSH PRN PRN Heparin Heparin Sodium (Porcine) 5,000 unit 01/31/18 11:21 Heparin - IVPUSH PRN PRN Heparin HEPARIN SOD,PORK IN 0.45% NACL 25,000 unit in 500 mls @ 16 mls/hr 01/31/18 11: 30 02/01/18 13:36 Heparin-1/2ns 25,000 Units/500 IVPB Not Given TITR SAE Protocol 800 UNITS/HR Losartan Potassium 50 mg 01/30/18 22:00 02/01/18 10:49 Cozaar - PO 50 mg BID SAE Administration Methylprednisolone 4 mg 01/30/18 22:00 01/31/18 21:30 Medrol - PO 4 mg HS SAE Administration Nadolol 40 mg 01/31/18 10:00 02/01/18 10:50 Corgard - PO 40 mg DAILY SAE Administration Nifedipine 60 mg 01/31/18 10:00 02/01/18 10:49 Procardia Xl - PO 60 mg DAILY SAE Administration Warfarin Sodium 5 mg 01/31/18 18:00 02/01/18 17:10 Coumadin - PO 5 mg DAILY@1800 SAE Administration ASSESSMENT/PLAN: 1) R pleural effusion --RA with SpO2>90% --PE ruled out --Pulmonology on board --No thoracentesis due to small effusions and loculated 2) Hyperkalemia --2/2 to ESRD --BMP tomorrow AM --Previously normalized 3) HTN Continue Procardia 60mg qDaily Continue Cozaar 50 BID Continue Nadolol 40mg qDaily Continue Clonidine 0.3 TD on Wednesday 4) ESRD on HD --T/T/S scheduling to continue --Continue Cinacalcet 30mg HS --Nephrology on board 5) PE s/p R lobectomy --Continue Coumadin 5mg qDaily --Bridging to Coumadin --INR check tomorrow 6) SLE --Continue Methylprednisolone 4mg PO HS FEN: Fluids: Tolerating PO Electrolyte Abnormalities: No labs today; check tomorrow Nutrition: Renal/Sodium-controlled diet PPX: DVT - On heparin gtt bridging to coumadin Dispo: D/C planning once therapeutic; awaiting Echo report? Case discussed with Dr. Narendra Ward, DO - IM PGY-1 Visit type - Emergency Visit Emergency Visit: No - New Patient This patient is new to me today: No - Critical Care Critical Care patient: No
[2018-02-01] MEDS: CINACALCET HCL 30 MG TAB (FP) PO SCH (21:48)
[2018-02-01] MEDS: methylPREDNISolone 4 MG TABLET PO SCH (21:49)
[2018-02-02] MEDS: HEPARIN SOD,PORK IN 0.45% NACL 25,000 UNIT/500 ML INFUS.BAG IVPB SCH (00:21)
[2018-02-02 06:06] LABS: HBSAG SCREEN Negative (Negative); HEP B CORE AB, TOT Negative (Negative)
--- NOTE | 2018-02-02 07:54 | PN ---
Physical Exam: SUBJECTIVE: Pt hypertensive on morning vitals. Pt denies any problems overnight and denies any current symptoms including headache, blurry vision, cp/discomfort , palpitations OBJECTIVE: Vital Signs Period Temp Pulse Resp BP Sys/William Pulse Ox Last 24 Hr 97.4 F-98.7 F 64-72 17-20 144-180/74-99 98-98 GENERAL: NAD, awake, alert, and fully oriented HEENT: EOMI, FIDENCIO, moist mucosa LUNGS: Diminished breath sounds RLL, no wheezes, no crackles, no accessory muscle use. HEART: RRR, S1, S2 without murmur ABDOMEN: Soft, NT/ND, normoactive bowel sounds, no guarding, no hepatomegaly EXTREMITIES: 2+ DP pulses, warm, no edema. PSYCH: Normal mood, normal affect. SKIN: Warm, dry, no rashes or lesions noted Laboratory Results - last 24 hr 01/31/18 01/31/18 14:25 15:15 Hepatitis A Ab Total Negative Hep Bs Antigen Negative Hep Bs Antibody Reactive Hep B Core Total Ab Negative Hep C Ab Diagnostic 0.1 Liver Fibrosis Interp Active Medications Generic Name Dose Route Start Last Admin Trade Name Freq PRN Reason Stop Dose Admin Cinacalcet 30 mg 01/30/18 22:00 02/01/18 21:48 Sensipar - PO 30 mg HS SAE Administration Clonidine HCl 0.3 mg 01/30/18 10:00 Catapres Tts Patch - TD Estrada@1000 SAE Heparin Sodium (Porcine) 1,000 unit 01/31/18 11:21 Heparin - IVPUSH PRN PRN Heparin Heparin Sodium (Porcine) 5,000 unit 01/31/18 11:21 Heparin - IVPUSH PRN PRN Heparin HEPARIN SOD,PORK IN 0.45% NACL 25,000 unit in 500 mls @ 16 mls/hr 01/31/18 11: 30 02/02/18 00:21 Heparin-1/2ns 25,000 Units/500 IVPB 650 units/hr TITR SAE 13 mls/hr Administration Protocol 800 UNITS/HR Losartan Potassium 50 mg 01/30/18 22:00 02/01/18 21:48 Cozaar - PO 50 mg BID SAE Administration Methylprednisolone 4 mg 01/30/18 22:00 02/01/18 21:49 Medrol - PO 4 mg HS SAE Administration Nadolol 40 mg 01/31/18 10:00 02/01/18 10:50 Corgard - PO 40 mg DAILY SAE Administration Nifedipine 60 mg 01/31/18 10:00 02/01/18 10:49 Procardia Xl - PO 60 mg DAILY SAE Administration Warfarin Sodium 5 mg 01/31/18 18:00 02/01/18 17:10 Coumadin - PO 5 mg DAILY@1800 SAE Administration ASSESSMENT/PLAN: 1) R pleural effusion --RA with SpO2>90% --PE ruled out --Pulmonology on board --No thoracentesis due to small effusions and loculated 2) Hyperkalemia --2/2 to ESRD --6.5 today with no EKG changes --Kayexalate 30 --Rpt K with 4.0 --HD today 3) HTN with hypertensive urgency --today 202/114 --Procardia 30mg extra to morning meds --Tomorrow start procardia 90mg qDaily Continue Cozaar 50 BID Continue Nadolol 40mg qDaily Continue Clonidine 0.3 TD on Wednesday 4) ESRD on HD --T/T/S scheduling to continue --Continue Cinacalcet 30mg HS --Nephrology on board 5) PE s/p R lobectomy --Continue Coumadin 5mg qDaily --Bridging to Coumadin --INR check tomorrow 6) SLE --Continue Methylprednisolone 4mg PO HS FEN: Fluids: Tolerating PO; avoid due to ESRD Electrolyte Abnormalities: Hyperkalemia as above Nutrition: Renal/Sodium-controlled diet PPX: DVT - On heparin gtt bridging to coumadin Dispo: HD today; bridging to coumadin Case discussed with Dr. Marissa Ward, DO - IM PGY-1 Visit type - Emergency Visit Emergency Visit: No - New Patient This patient is new to me today: No - Critical Care Critical Care patient: No
[2018-02-02 08:09] LABS: HEMATOCRIT 30.3 % (32.4-45.2); HEMOGLOBIN 10.4 GM/dL (10.7-15.3); MCH 31.7 pg (25.7-33.7); MCHC 34.2 g/dl (32.0-36.0); MEAN CELL VOLUME 92.7 fl (80-96); MEAN PLT VOLUME 7.8 fl (7.5-11.1); PLATELET COUNT 249 K/MM3 (134-434); RBC 3.27 M/mm3 (3.60-5.2); RDW 14.6 % (11.6-15.6); WHITE BLOOD COUNT 5.3 K/mm3 (4.0-10.0)
[2018-02-02] MEDS ORDERED: PT OWN MED DRAWER 7, Y5N ONE ×3 (08:48→21:36)
[2018-02-02 08:57] LABS: ANION GAP 8 (8-16); BLOOD UREA NITROGEN 49 mg/dL (7-18); CALCIUM 7.6 mg/dL (8.5-10.1); CHLORIDE 98 mmol/L (98-107); CO2 27 mmol/L (21-32); GLUCOSE,RANDOM 84 mg/dL (74-106); SODIUM 133 mmol/L (136-145)
[2018-02-02 08:59] LABS: INR 1.53 (0.82-1.09); PROTHROMBIN TIME (PATIENT) 17.3 SEC (9.7-13.0)
[2018-02-02] MEDS: LOSARTAN POTASSIUM 50 MG TABLET (FP) PO SCH ×2 (09:01→22:05)
[2018-02-02] MEDS: NIFEdipine E.R. 30 MG TABLET (FP) PO SCH (09:01)
[2018-02-02] MEDS: NADOLOL 40 MG TABLET (FP) PO SCH (09:01)
[2018-02-02 09:10] LABS: CREATININE 9.1 mg/dL (0.55-1.02); POTASSIUM 6.5 mmol/L (3.5-5.1)
[2018-02-02] MEDS ORDERED: SODIUM POLYSTYRENE SULFONATE 15 GM/60 ML BOTTLE PO ONE ×2 (09:18→09:45)
[2018-02-02] MEDS ORDERED: SODIUM CHLORIDE 250 ML IV PRN ×2 (09:23)
[2018-02-02] MEDS ORDERED: NIFEdipine E.R. 30 MG TABLET (FP) PO ONE ×2 (12:15→19:30)
--- NOTE | 2018-02-02 13:27 | EKG ---
Test Reason : Blood Pressure : / mmHG Vent. Rate : 061 BPM Atrial Rate : 061 BPM P-R Int : 254 ms QRS Dur : 092 ms QT Int : 470 ms P-R-T Axes : 063 070 -03 degrees QTc Int : 473 ms SINUS RHYTHM WITH 1ST DEGREE A-V BLOCK ABNORMAL QRS-T ANGLE, CONSIDER PRIMARY T WAVE ABNORMALITY ABNORMAL ECG WHEN COMPARED WITH ECG OF 30-JAN-2018 14:49, NONSPECIFIC T WAVE ABNORMALITY NO LONGER EVIDENT IN LATERAL LEADS Confirmed by ELSY BANEGAS, MOE ([id number]) on 02/02/2018 1:27:13 PM Referred By: MATIAS WILDER Confirmed By:MOE CHIN MD
--- NOTE | 2018-02-02 13:54 | PN ---
Progress Note, Physician History of Present Illness: PULMONARY ALERT,NAD,-CP,-SOB - Current Medication List Current Medications: Active Medications Cinacalcet (Sensipar -) 30 mg PO HS [facility] Last Admin: 02/01/18 21:48 Dose: 30 mg Clonidine HCl (Catapres Tts Patch -) 0.3 mg TD Estrada@1000 SAE Heparin Sodium (Porcine) (Heparin -) 1,000 unit IVPUSH PRN PRN PRN Reason: Heparin Heparin Sodium (Porcine) (Heparin -) 5,000 unit IVPUSH PRN PRN PRN Reason: Heparin HEPARIN SOD,PORK IN 0.45% NACL (Heparin-1/2ns 25,000 Units/500) 25,000 unit in 500 mls @ 16 mls/hr IVPB TITR [facility]; Protocol Last Admin: 02/02/18 00:21 Dose: 650 units/hr, 13 mls/hr Sodium Chloride (Normal Saline -) 250 mls @ 3,000 mls/hr IV PRN PRN PRN Reason: Hypotension during Dialysis Stop: 02/03/18 09:23 Losartan Potassium (Cozaar -) 50 mg PO BID [facility] Last Admin: 02/02/18 09:01 Dose: 50 mg Methylprednisolone (Medrol -) 4 mg PO [facility] Last Admin: 02/01/18 21:49 Dose: 4 mg Nadolol (Corgard -) 40 mg PO DAILY [facility] Last Admin: 02/02/18 09:01 Dose: 40 mg Nifedipine (Procardia Xl -) 90 mg PO DAILY [facility] Warfarin Sodium (Coumadin -) 5 mg PO DAILY@1800 [facility] Last Admin: 02/01/18 17:10 Dose: 5 mg - Objective Vital Signs: Vital Signs Temperature 97.9 F 02/02/18 07:51 Pulse Rate 67 02/02/18 07:51 Respiratory Rate 19 02/02/18 07:51 Blood Pressure 202/114 02/02/18 07:51 O2 Sat by Pulse Oximetry (%) 98 02/01/18 22:00 Constitutional: Yes: Well Nourished, Calm Eyes: Yes: WNL HENT: Yes: WNL Neck: Yes: WNL Cardiovascular: Yes: Regular Rate and Rhythm, S1, S2 Respiratory: Yes: CTA Bilaterally Extremities: Yes: WNL Edema: No Labs: CBC, BMP 02/02/18 07:10 02/02/18 07:10 INR, PTT INR 1.53 (0.82-1.09) H 02/02/18 07:10 Assessment/Plan Problem List - Problems (1) Shortness of breath Code(s): R06.02 - SHORTNESS OF BREATH (2) Pleural effusion Code(s): J90 - PLEURAL EFFUSION, NOT ELSEWHERE CLASSIFIED (3) ESRD (end stage renal disease) Code(s): N18.6 - END STAGE RENAL DISEASE (4) SLE (systemic lupus erythematosus) Code(s): M32.9 - SYSTEMIC LUPUS ERYTHEMATOSUS, UNSPECIFIED Assessment/Plan Shortness of breath improved Small Pleural Effusions ESRD on HD Mild Volume Overload Lupus h/o PE/pulmonary infarct s/p RLL lobectomy HTN - continue anticoagulation bridge from heparin gtt to coumadin, target INR 2-3 - HD per renal - O2 to keep SpO2 >90% - bp control DR AGUILAR
--- NOTE | 2018-02-02 17:04 | PN ---
Progress Note, Physician History of Present Illness: Renal f/u Seen and examined. Being dialyzed. No acute complaints. - Current Medication List Current Medications: Active Medications Cinacalcet (Sensipar -) 30 mg PO HS [facility] Last Admin: 02/01/18 21:48 Dose: 30 mg Clonidine HCl (Catapres Tts Patch -) 0.3 mg TD Estrada@1000 SAE Heparin Sodium (Porcine) (Heparin -) 1,000 unit IVPUSH PRN PRN PRN Reason: Heparin Heparin Sodium (Porcine) (Heparin -) 5,000 unit IVPUSH PRN PRN PRN Reason: Heparin HEPARIN SOD,PORK IN 0.45% NACL (Heparin-1/2ns 25,000 Units/500) 25,000 unit in 500 mls @ 16 mls/hr IVPB TITR [facility]; Protocol Last Titration: 02/02/18 14:51 Dose: 650 units/hr, 13 mls/hr Sodium Chloride (Normal Saline -) 250 mls @ 3,000 mls/hr IV PRN PRN PRN Reason: Hypotension during Dialysis Stop: 02/03/18 09:23 Losartan Potassium (Cozaar -) 50 mg PO BID [facility] Last Admin: 02/02/18 09:01 Dose: 50 mg Methylprednisolone (Medrol -) 4 mg PO HS [facility] Last Admin: 02/01/18 21:49 Dose: 4 mg Nadolol (Corgard -) 40 mg PO DAILY [facility] Last Admin: 02/02/18 09:01 Dose: 40 mg Nifedipine (Procardia Xl -) 90 mg PO DAILY [facility] Warfarin Sodium (Coumadin -) 5 mg PO DAILY@1800 [facility] Last Admin: 02/01/18 17:10 Dose: 5 mg - Objective Vital Signs: Vital Signs Temperature 97.6 F 02/02/18 14:00 Pulse Rate 68 02/02/18 15:05 Respiratory Rate 18 02/02/18 15:05 Blood Pressure 170/99 02/02/18 15:05 O2 Sat by Pulse Oximetry (%) 96 02/02/18 14:40 Constitutional: Yes: No Distress, Calm Cardiovascular: Yes: Regular Rate and Rhythm, S1, S2 Respiratory: Yes: CTA Bilaterally Edema: No Labs: CBC, BMP 02/02/18 07:10 02/02/18 07:10 INR, PTT INR 1.53 (0.82-1.09) H 02/02/18 07:10 Impression/Plan Impression/Plan: 42 yo h/o ESRD on HD, renal transplant with chronc allograft nephropathy, Lupus nephropathy, HTN admitted to the hospital for sob. 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 anti-HTN regiment Visit type - Emergency Visit Emergency Visit: No - New Patient This patient is new to me today: No - Critical Care Critical Care patient: No - Discharge Referral Referred to [facility] No
--- NOTE | 2018-02-02 18:04 | PN ---
Teaching Attending Note Name of Resident: Gurmeet Ward ATTENDING PHYSICIAN STATEMENT I saw and evaluated the patient. I reviewed the resident's note and discussed the case with the resident. I agree with the resident's findings and plan as documented. SUBJECTIVE: No fever or chills . no PELLETIER . reports recent changes to her BP meds. changing from poclonidine to patch 0.2 mg , then 0.3 mg then increasing procardia to 60 . OBJECTIVE: NAD CV: RRR Lungs: bibasilar crackles . Ext: no edema ASSESSMENT AND PLAN: 42 y/o lady with h/o ESRD, s/p renal transplant with allograft nephropathy, LUPUS, PE s/p R lobectmy , and uncomtroled HTN who presented with worsening SOB and was found to have signs of fluid overload. 1- Volume overload. due to ESRD - need HD today - symptoms improved 2- Hyperkalemia: 6.5. with no EKG changes. s/p Kayeksylate with BM - need HD . - Repeat K waiting for HD - already received Hd , if no HS , then will hold losartan 3- HTN urgency with BP 202/114. - gave extra dose of procardia this am ( 30 ) - increase procardia to 90 daily - cont nadolol and losartan. 5- H/o PE , s/p Lobectomy. - cont heparin gtt and coumadin 6- HLOC
--- NOTE | 2018-02-02 18:24 | PN ---
Progress Note (short form) - Note Progress Note: Renal follow up for ESRD on HD Pt seen and examined during dialysis BP improved during HD UF goal is 3L no cramping access pressures are WNL pt w/o any acute complaints Vital Signs Temperature 97.6 F 02/02/18 14:00 Pulse Rate 68 02/02/18 15:05 Respiratory Rate 18 02/02/18 15:05 Blood Pressure 170/99 02/02/18 15:05 O2 Sat by Pulse Oximetry (%) 96 02/02/18 14:40 Intake & Output 01/30/18 01/31/18 02/01/18 02/02/18 23:59 23:59 23:59 23:59 Intake Total 946 1227 556 Output Total 0 0 0 Balance 946 1227 556 Weight 59.874 kg 61.28 kg 59.647 kg 60.101 kg NAD CTA no LE edema CBC, BMP 02/02/18 07:10 02/02/18 07:10 Current Medications Cinacalcet (Sensipar -) 30 mg PO HS [facility] Last Admin: 02/01/18 21:48 Dose: 30 mg Clonidine HCl (Catapres Tts Patch -) 0.3 mg TD Estrada@1000 SAE Heparin Sodium (Porcine) (Heparin -) 1,000 unit IVPUSH PRN PRN PRN Reason: Heparin Heparin Sodium (Porcine) (Heparin -) 5,000 unit IVPUSH PRN PRN PRN Reason: Heparin HEPARIN SOD,PORK IN 0.45% NACL (Heparin-1/2ns 25,000 Units/500) 25,000 unit in 500 mls @ 16 mls/hr IVPB TITR SAE; Protocol Last Titration: 02/02/18 18:04 Dose: 650 units/hr, 13 mls/hr Sodium Chloride (Normal Saline -) 250 mls @ 3,000 mls/hr IV PRN PRN PRN Reason: Hypotension during Dialysis Stop: 02/03/18 09:23 Losartan Potassium (Cozaar -) 50 mg PO BID [facility] Last Admin: 02/02/18 09:01 Dose: 50 mg Methylprednisolone (Medrol -) 4 mg PO HS [facility] Last Admin: 02/01/18 21:49 Dose: 4 mg Nadolol (Corgard -) 40 mg PO DAILY [facility] Last Admin: 02/02/18 09:01 Dose: 40 mg Nifedipine (Procardia Xl -) 90 mg PO DAILY [facility] Warfarin Sodium (Coumadin -) 5 mg PO DAILY@1800 [facility] Last Admin: 02/01/18 17:10 Dose: 5 mg 42 year old woman with PMhx of ESRD on HD, Hx of Renal transplant with chronc allograft nephropathy, Lupus, Hypertension who presented with SOB #ERSD on HD #Hyperkalemia #Hx of PE on A/C #SOB with small pleural effusions #Hypertensoin tolerating dialysis with UF well today ? recirculation as cause of elevated K however access pressures were WNL will check BMP in AM on Heparin gtt for subtheraputic INR Thank you Jassi Sung DO
[2018-02-02] MEDS: WARFARIN NA 5 MG TABLET (UD) PO SCH (18:51)
[2018-02-02] MEDS: CINACALCET HCL 30 MG TAB (FP) PO SCH (22:05)
[2018-02-02] MEDS: methylPREDNISolone 4 MG TABLET PO SCH (22:05)
[2018-02-03 08:05] LABS: HEMATOCRIT 30.2 % (32.4-45.2); HEMOGLOBIN 10.1 GM/dL (10.7-15.3); MCH 31.3 pg (25.7-33.7); MCHC 33.5 g/dl (32.0-36.0); MEAN CELL VOLUME 93.4 fl (80-96); PLATELET COUNT 274 K/MM3 (134-434); RBC 3.23 M/mm3 (3.60-5.2); RDW 15.1 % (11.6-15.6); WHITE BLOOD COUNT 5.3 K/mm3 (4.0-10.0)
--- NOTE | 2018-02-03 08:36 | PN ---
Physical Exam: SUBJECTIVE: No complaints today. Eager to go home OBJECTIVE: Vital Signs Period Temp Pulse Resp BP Sys/William Pulse Ox Last 24 Hr 97.6 F-98.1 F 61-80 18-20 135-200/72-117 96-96 GENERAL: NAD, awake, alert, and fully oriented HEENT: EOMI, FIDENCIO, moist mucosa LUNGS: Diminished breath sounds RLL, no wheezes, no crackles, no accessory muscle use. HEART: RRR, S1, S2 without murmur ABDOMEN: Soft, NT/ND, normoactive bowel sounds, no guarding, no hepatomegaly EXTREMITIES: 2+ DP pulses, warm, no edema. PSYCH: Normal mood, normal affect. SKIN: Warm, dry, no rashes or lesions noted Laboratory Results - last 24 hr 01/31/18 02/02/18 02/02/18 14:25 07:10 07:10 WBC RBC Hgb Hct MCV MCH MCHC RDW Plt Count MPV PT with INR INR PTT (Actin FS) 66.2 H Sodium 133 L Potassium 6.5 H* Chloride 98 Carbon Dioxide 27 Anion Gap 8 BUN 49 H Creatinine 9.1 H* Random Glucose 84 Calcium 7.6 L DEE DEE Screen Negative Double Strand DNA Ab 2 02/02/18 02/02/18 02/03/18 07:10 22:00 07:00 WBC 5.3 RBC 3.23 L Hgb 10.1 L Hct 30.2 L MCV 93.4 MCH 31.3 MCHC 33.5 RDW 15.1 Plt Count 274 MPV 8.0 PT with INR 17.30 H INR 1.53 H PTT (Actin FS) Sodium Potassium 4.0 Chloride Carbon Dioxide Anion Gap BUN Creatinine Random Glucose Calcium DEE DEE Screen Double Strand DNA Ab Active Medications Generic Name Dose Route Start Last Admin Trade Name Freq PRN Reason Stop Dose Admin Cinacalcet 30 mg 01/30/18 22:00 02/02/18 22:05 Sensipar - PO 30 mg HS SAE Administration Clonidine HCl 0.3 mg 01/30/18 10:00 Catapres Tts Patch - TD Estrada@1000 [facility]E Heparin Sodium (Porcine) 1,000 unit 01/31/18 11:21 Heparin - IVPUSH PRN PRN Heparin Heparin Sodium (Porcine) 5,000 unit 01/31/18 11:21 Heparin - IVPUSH PRN PRN Heparin HEPARIN SOD,PORK IN 0.45% NACL 25,000 unit in 500 mls @ 16 mls/hr 01/31/18 11: 30 02/02/18 18:04 Heparin-1/2ns 25,000 Units/500 IVPB 650 units/hr TITR SAE 13 mls/hr Titration Protocol 800 UNITS/HR Losartan Potassium 50 mg 01/30/18 22:00 02/02/18 22:05 Cozaar - PO 50 mg BID [facility]E Administration Methylprednisolone 4 mg 01/30/18 22:00 02/02/18 22:05 Medrol - PO 4 mg HS SAE Administration Nadolol 40 mg 01/31/18 10:00 02/02/18 09:01 Corgard - PO 40 mg DAILY [facility]E Administration Nifedipine 90 mg 02/03/18 10:00 Procardia Xl - PO DAILY [facility] Warfarin Sodium 5 mg 01/31/18 18:00 02/02/18 18:51 Coumadin - PO 5 mg DAILY@1800 [facility] Administration ASSESSMENT/PLAN: 1) R pleural effusion --RA with SpO2>90% --PE ruled out --Pulmonology on board --No thoracentesis due to small effusions and loculated 2) Hyperkalemia --2/2 to ESRD --5.1 today s/p dialysis --Likely due to recirculation of arterial flow into venous system without clearance 3) HTN with hypertensive urgency --BP better controlled this morning Continue Procardia 90mg qDaily Continue Cozaar 50 BID Continue Nadolol 40mg qDaily Continue Clonidine 0.3 TD on Wednesday 4) ESRD on HD --T/T/S scheduling to continue --HD for today to reset pt back to normal schedule --Continue Cinacalcet 30mg HS --Nephrology on board 5) PE s/p R lobectomy --Continue Coumadin 5mg qDaily --Bridging to Coumadin --INR check tomorrow 6) SLE --Continue Methylprednisolone 4mg PO HS FEN: Fluids: Tolerating PO; avoid due to ESRD Electrolyte Abnormalities: Hyperkalemia as above Nutrition: Renal/Sodium-controlled diet PPX: DVT - On heparin gtt bridging to coumadin Dispo: HD today; bridging to coumadin Case discussed with Dr. Marissa Ward, DO - IM PGY-1 Visit type - Emergency Visit Emergency Visit: No - New Patient This patient is new to me today: No - Critical Care Critical Care patient: No
[2018-02-03 08:45] LABS: INR 1.7 (0.82-1.09); PROTHROMBIN TIME (PATIENT) 19.2 SEC (9.7-13.0)
[2018-02-03 08:50] LABS: ANION GAP 12 (8-16); BLOOD UREA NITROGEN 28 mg/dL (7-18); CALCIUM 8.4 mg/dL (8.5-10.1); CHLORIDE 99 mmol/L (98-107); CO2 28 mmol/L (21-32); CREATININE 6.5 mg/dL (0.55-1.02); GLUCOSE,RANDOM 83 mg/dL (74-106); POTASSIUM 5.1 mmol/L (3.5-5.1); SODIUM 139 mmol/L (136-145)
--- NOTE | 2018-02-03 10:13 | PN ---
Progress Note (short form) - Note Progress Note: Sitting in the chair. NAD on RA, saturation 98%. Breathing feels overall better. No acute events overnight. Intake & Output 01/31/18 02/01/18 02/02/18 02/03/18 23:59 23:59 23:59 23:59 Intake Total 946 1227 1012 Output Total 0 0 0 Balance 946 1227 1012 Weight 135 lb 1.6 oz 131 lb 8 oz 132 lb 8 oz 131 lb 3 oz Last Vital Signs Temp Pulse Resp BP Pulse Ox 98.1 F 75 20 156/85 96 02/03/18 06:00 02/03/18 06:00 02/03/18 06:00 02/03/18 06:00 02/02/18 21:00 Active Medications Cinacalcet (Sensipar -) 30 mg PO HS [facility] Last Admin: 02/02/18 22:05 Dose: 30 mg Clonidine HCl (Catapres Tts Patch -) 0.3 mg TD Estrada@1000 [facility] Heparin Sodium (Porcine) (Heparin -) 1,000 unit IVPUSH PRN PRN PRN Reason: Heparin Heparin Sodium (Porcine) (Heparin -) 5,000 unit IVPUSH PRN PRN PRN Reason: Heparin HEPARIN SOD,PORK IN 0.45% NACL (Heparin-1/2ns 25,000 Units/500) 25,000 unit in 500 mls @ 16 mls/hr IVPB TITR [facility]; Protocol Last Titration: 02/02/18 18:04 Dose: 650 units/hr, 13 mls/hr Sodium Chloride (Normal Saline -) 250 mls @ 3,000 mls/hr IV PRN PRN PRN Reason: Hypotension during Dialysis Stop: 02/04/18 10:59 Losartan Potassium (Cozaar -) 50 mg PO BID [facility] Last Admin: 02/02/18 22:05 Dose: 50 mg Methylprednisolone (Medrol -) 4 mg PO HS [facility] Last Admin: 02/02/18 22:05 Dose: 4 mg Nadolol (Corgard -) 40 mg PO DAILY [facility] Last Admin: 02/02/18 09:01 Dose: 40 mg Nifedipine (Procardia Xl -) 90 mg PO DAILY [facility] Warfarin Sodium (Coumadin -) 5 mg PO DAILY@1800 [facility] Last Admin: 02/02/18 18:51 Dose: 5 mg Constitutional: Yes: NAD Eyes: Yes: Conjunctiva Clear, EOM Intact HENT: Yes: Atraumatic, Normocephalic Neck: Yes: Supple, Trachea Midline Cardiovascular: Yes: Regular Rate and Rhythm Respiratory: Yes: Clear ...Clubbing: No Gastrointestinal: Yes: Normal Bowel Sounds, Soft. No: Tenderness Edema: No Neurological: Yes: Alert, Oriented Labs: Laboratory Results - last 24 hr 01/31/18 02/02/18 02/03/18 14:25 22:00 07:00 WBC 5.3 RBC 3.23 L Hgb 10.1 L Hct 30.2 L MCV 93.4 MCH 31.3 MCHC 33.5 RDW 15.1 Plt Count 274 MPV 8.0 PT with INR INR PTT (Actin FS) Sodium Potassium 4.0 Chloride Carbon Dioxide Anion Gap BUN Creatinine Random Glucose Calcium DEE DEE Screen Negative Double Strand DNA Ab 2 02/03/18 02/03/18 02/03/18 07:00 07:00 07:00 WBC RBC Hgb Hct MCV MCH MCHC RDW Plt Count MPV PT with INR 19.20 H INR 1.70 H PTT (Actin FS) 72.5 H Sodium 139 Potassium 5.1 Chloride 99 Carbon Dioxide 28 Anion Gap 12 BUN 28 H Creatinine 6.5 H Random Glucose 83 Calcium 8.4 L DEE DEE Screen Double Strand DNA Ab Problem List - Problems (1) Shortness of breath Code(s): R06.02 - SHORTNESS OF BREATH (2) Pleural effusion Code(s): J90 - PLEURAL EFFUSION, NOT ELSEWHERE CLASSIFIED (3) ESRD (end stage renal disease) Code(s): N18.6 - END STAGE RENAL DISEASE (4) SLE (systemic lupus erythematosus) Code(s): M32.9 - SYSTEMIC LUPUS ERYTHEMATOSUS, UNSPECIFIED Assessment/Plan Shortness of breath Small Pleural Effusions ESRD on HD Mild Volume Overload Lupus h/o PE/pulmonary infarct s/p RLL lobectomy - AC heparin / coumadin INR 2-3 - HD per renal - No Pulmonary contraindication for D/C planning and follow INR with her Primary team ([facility]alk[facility]) Dr Camp
[2018-02-03] MEDS ORDERED: PT OWN MED DRAWER 7, Y5N ONE ×2 (10:52→21:29)
[2018-02-03] MEDS ORDERED: SODIUM CHLORIDE 250 ML IV PRN (11:00)
[2018-02-03] MEDS: NADOLOL 40 MG TABLET (FP) PO SCH (11:43)
[2018-02-03] MEDS: LOSARTAN POTASSIUM 50 MG TABLET (FP) PO SCH ×2 (11:43→21:44)
[2018-02-03] MEDS: NIFEdipine E.R. 30 MG TABLET (FP) PO SCH (11:44)
--- NOTE | 2018-02-03 14:10 | PN ---
Teaching Attending Note Name of Resident: Gurmeet Ward ATTENDING PHYSICIAN STATEMENT I saw and evaluated the patient. I reviewed the resident's note and discussed the case with the resident. I agree with the resident's findings and plan as documented. SUBJECTIVE: No fever or chills. has no abd pain or cp or PELLETIER . OBJECTIVE: NAD CV: RRR Lungs: CTAB. Ext: no edema ASSESSMENT AND PLAN: 42 y/o lady with h/o ESRD, s/p renal transplant with allograft nephropathy, LUPUS, PE s/p R lobectmy , and uncontrolled HTN who presented with worsening SOB and was found to have signs of fluid overload. 1- Volume overload. Due to ESRD - manage with HD 2- Hyperkalemia: resolved with Hd yesterday but K is 5.1 today - will ask renal if HD might be indicated today to place her onher routine schedule - if not, will repeat K and probably hold losartan as pt might not be able to wait till Wednesday 3- HTN urgency . BP improved with increasing procardia - cont procardia at 90 mg - cont clonidine patch - cont nadolol - losartan. plan as above depending on K level and HD plans 5- H/o PE , s/p Lobectomy. - cont heparin gtt and coumadin . INR 1.7 today 6- HLOC Anticipate therpaeutic INR tomorrow and dc home
[2018-02-03] MEDS: WARFARIN NA 5 MG TABLET (UD) PO SCH ×2 (18:08→21:43)
[2018-02-03] MEDS: HEPARIN INFUSION - 25,000 UNITS/500 ML INFUS.BAG IVPB SCH (18:22)
--- NOTE | 2018-02-03 18:39 | PN ---
Progress Note (short form) - Note Progress Note: Renal follow up for ESRD on HD Pt seen and examined no complaints s/p HD yesterday K remains high normal despite dialysis yesterday getting doppler today Vital Signs Temperature 99.1 F 02/03/18 14:00 Pulse Rate 68 02/03/18 16:45 Respiratory Rate 18 02/03/18 16:45 Blood Pressure 175/95 02/03/18 16:45 O2 Sat by Pulse Oximetry (%) 96 02/03/18 08:00 Intake & Output 01/31/18 02/01/18 02/02/18 02/03/18 23:59 23:59 23:59 23:59 Intake Total 946 1227 1012 396 Output Total 0 0 0 0 Balance 946 1227 1012 396 Weight 61.28 kg 59.647 kg 60.101 kg 59.506 kg NAD CTA no LE edema CBC, BMP 02/03/18 07:00 02/03/18 07:00 Current Medications Cinacalcet (Sensipar -) 30 mg PO HS [facility] Last Admin: 02/02/18 22:05 Dose: 30 mg Clonidine HCl (Catapres Tts Patch -) 0.3 mg TD Estrada@1000 [facility] Heparin Sodium (Porcine) (Heparin -) 1,000 unit IVPUSH PRN PRN PRN Reason: Heparin Heparin Sodium (Porcine) (Heparin -) 5,000 unit IVPUSH PRN PRN PRN Reason: Heparin Sodium Chloride (Normal Saline -) 250 mls @ 3,000 mls/hr IV PRN PRN PRN Reason: Hypotension during Dialysis Stop: 02/04/18 10:59 Heparin Sodium/Dextrose (Heparin Infusion -) 25,000 units in 500 mls @ 16 mls/ hr IVPB TITR [facility]; Protocol Last Admin: 02/03/18 18:22 Dose: Not Given Losartan Potassium (Cozaar -) 50 mg PO BID [facility] Last Admin: 02/03/18 11:43 Dose: 50 mg Methylprednisolone (Medrol -) 4 mg PO HS [facility] Last Admin: 02/02/18 22:05 Dose: 4 mg Nadolol (Corgard -) 40 mg PO DAILY [facility] Last Admin: 02/03/18 11:43 Dose: 40 mg Nifedipine (Procardia Xl -) 90 mg PO DAILY [facility] Last Admin: 02/03/18 11:44 Dose: 90 mg Warfarin Sodium (Coumadin -) 5 mg PO DAILY@1800 [facility] Last Admin: 02/03/18 18:08 Dose: Not Given 42 year old woman with PMhx of ESRD on HD, Hx of Renal transplant with chronc allograft nephropathy, Lupus, Hypertension who presented with SOB #ERSD on HD #Hyperkalemia #Hx of PE on A/C #SOB with small pleural effusions #Hypertensoin for dialysis today and then will resume dialysis on TTS schedule doppler to be done today may need vascular intervention as outpatient renal diet continue current BP meds Thank you Jassi Sung DO
[2018-02-03] MEDS: CINACALCET HCL 30 MG TAB (FP) PO SCH (21:43)
[2018-02-03] MEDS: methylPREDNISolone 4 MG TABLET PO SCH (21:44)
[2018-02-03] MEDS: HEPARIN SOD,PORK IN 0.45% NACL 25,000 UNIT/500 ML INFUS.BAG IVPB SCH (21:49)
[2018-02-04 08:05] LABS: HEMATOCRIT 29.6 % (32.4-45.2); MCH 31.3 pg (25.7-33.7); MCHC 33.7 g/dl (32.0-36.0); MEAN CELL VOLUME 92.8 fl (80-96); MEAN PLT VOLUME 7.3 fl (7.5-11.1); PLATELET COUNT 250 K/MM3 (134-434); RBC 3.19 M/mm3 (3.60-5.2); RDW 14.8 % (11.6-15.6); WHITE BLOOD COUNT 5.8 K/mm3 (4.0-10.0)
[2018-02-04 08:26] LABS: INR 1.69 (0.82-1.09); PROTHROMBIN TIME (PATIENT) 19.1 SEC (9.7-13.0)
[2018-02-04 09:16] LABS: ANION GAP 7 (8-16); BLOOD UREA NITROGEN 33 mg/dL (7-18); CALCIUM 8.2 mg/dL (8.5-10.1); CHLORIDE 99 mmol/L (98-107); CO2 30 mmol/L (21-32); CREATININE 6.6 mg/dL (0.55-1.02); GLUCOSE,RANDOM 79 mg/dL (74-106); PHOSPHOROUS 5.1 mg/dL (2.5-4.9); POTASSIUM 4.9 mmol/L (3.5-5.1); SODIUM 136 mmol/L (136-145)
[2018-02-04] MEDS ORDERED: PT OWN MED DRAWER 7, Y5N ONE ×2 (09:30→21:31)
[2018-02-04] MEDS: LOSARTAN POTASSIUM 50 MG TABLET (FP) PO SCH ×2 (09:31→21:31)
[2018-02-04] MEDS: NADOLOL 40 MG TABLET (FP) PO SCH (09:31)
[2018-02-04] MEDS: NIFEdipine E.R. 30 MG TABLET (FP) PO SCH (09:32)
--- NOTE | 2018-02-04 15:15 | PN ---
Progress Note, Physician History of Present Illness: pulmonary alert,nad,-cp,-sob - Current Medication List Current Medications: Active Medications Cinacalcet (Sensipar -) 30 mg PO HS [facility] Last Admin: 02/03/18 21:43 Dose: 30 mg Clonidine HCl (Catapres Tts Patch -) 0.3 mg TD Estrada@1000 [facility] Heparin Sodium (Porcine) (Heparin -) 1,000 unit IVPUSH PRN PRN PRN Reason: Heparin Heparin Sodium (Porcine) (Heparin -) 5,000 unit IVPUSH PRN PRN PRN Reason: Heparin Heparin Sodium/Dextrose (Heparin Infusion -) 25,000 units in 500 mls @ 16 mls/ hr IVPB TITR [facility]; Protocol Last Admin: 02/03/18 18:22 Dose: Not Given Losartan Potassium (Cozaar -) 50 mg PO BID [facility] Last Admin: 02/04/18 09:31 Dose: 50 mg Methylprednisolone (Medrol -) 4 mg PO HS [facility] Last Admin: 02/03/18 21:44 Dose: 4 mg Nadolol (Corgard -) 40 mg PO DAILY [facility] Last Admin: 02/04/18 09:31 Dose: 40 mg Nifedipine (Procardia Xl -) 90 mg PO DAILY [facility] Last Admin: 02/04/18 09:32 Dose: 90 mg Warfarin Sodium (Coumadin -) 5 mg PO DAILY@1800 [facility] Last Admin: 02/03/18 21:43 Dose: 5 mg - Objective Vital Signs: Vital Signs Temperature 98.4 F 02/04/18 14:51 Pulse Rate 68 02/04/18 14:51 Respiratory Rate 18 02/04/18 14:51 Blood Pressure 156/78 02/04/18 14:51 O2 Sat by Pulse Oximetry (%) 96 02/04/18 08:00 Constitutional: Yes: Well Nourished, Calm Eyes: Yes: WNL HENT: Yes: WNL Neck: Yes: WNL Cardiovascular: Yes: Regular Rate and Rhythm, S1, S2 Respiratory: Yes: CTA Bilaterally Extremities: Yes: WNL Edema: No Labs: CBC, BMP 02/04/18 07:00 02/04/18 07:30 INR, PTT INR 1.69 (0.82-1.09) H 02/04/18 07:30 Assessment/Plan Problem List - Problems (1) Shortness of breath Code(s): R06.02 - SHORTNESS OF BREATH (2) Pleural effusion Code(s): J90 - PLEURAL EFFUSION, NOT ELSEWHERE CLASSIFIED (3) ESRD (end stage renal disease) Code(s): N18.6 - END STAGE RENAL DISEASE (4) SLE (systemic lupus erythematosus) Code(s): M32.9 - SYSTEMIC LUPUS ERYTHEMATOSUS, UNSPECIFIED Assessment/Plan Shortness of breath improved Small Pleural Effusions ESRD on HD Mild Volume Overload Lupus h/o PE/pulmonary infarct s/p RLL lobectomy HTN - continue anticoagulation bridge from heparin gtt to coumadin, target INR 2-3 - HD per renal - O2 to keep SpO2 >90% - bp control DR AGUILAR
--- NOTE | 2018-02-04 15:51 | PN ---
Physical Exam: SUBJECTIVE: Pt continues to want to go home. Pt underwent dialysis yesterday w/ o complications. OBJECTIVE: Vital Signs Period Temp Pulse Resp BP Sys/William Pulse Ox Last 24 Hr 98.4 F-98.7 F 65-80 18-20 135-189/78-112 96-96 GENERAL: NAD, awake, alert, and fully oriented HEENT: EOMI, FIDENCIO, moist mucosa LUNGS: Diminished breath sounds RLL, no wheezes, no crackles, no accessory muscle use. HEART: RRR, S1, S2 without murmur ABDOMEN: Soft, NT/ND, normoactive bowel sounds, no guarding, no hepatomegaly EXTREMITIES: 2+ DP pulses, warm, no edema. PSYCH: Normal mood, normal affect. SKIN: Warm, dry, no rashes or lesions noted Laboratory Results - last 24 hr 02/03/18 02/04/18 02/04/18 16:30 07:00 07:30 WBC 5.8 RBC 3.19 L Hgb 10.0 L Hct 29.6 L MCV 92.8 MCH 31.3 MCHC 33.7 RDW 14.8 Plt Count 250 MPV 7.3 L PT with INR INR PTT (Actin FS) 71.2 H Sodium Potassium 3.1 L Chloride Carbon Dioxide Anion Gap BUN Creatinine Random Glucose Calcium Phosphorus Magnesium 02/04/18 02/04/18 07:30 07:30 WBC RBC Hgb Hct MCV MCH MCHC RDW Plt Count MPV PT with INR 19.10 H INR 1.69 H PTT (Actin FS) Sodium 136 Potassium 4.9 Chloride 99 Carbon Dioxide 30 Anion Gap 7 L BUN 33 H Creatinine 6.6 H Random Glucose 79 Calcium 8.2 L Phosphorus 5.1 H Magnesium 2.0 Active Medications Generic Name Dose Route Start Last Admin Trade Name Freq PRN Reason Stop Dose Admin Cinacalcet 30 mg 01/30/18 22:00 02/03/18 21:43 Sensipar - PO 30 mg HS [facility] Administration Clonidine HCl 0.3 mg 01/30/18 10:00 Catapres Tts Patch - TD Estrada@1000 [facility] Heparin Sodium (Porcine) 1,000 unit 01/31/18 11:21 Heparin - IVPUSH PRN PRN Heparin Heparin Sodium (Porcine) 5,000 unit 01/31/18 11:21 Heparin - IVPUSH PRN PRN Heparin Heparin Sodium/Dextrose 25,000 units in 500 mls @ 16 mls/hr 02/03/18 18:11 18:22 Heparin Infusion - IVPB Not Given TITR [facility] Protocol 800 UNITS/HR Losartan Potassium 50 mg 01/30/18 22:00 02/04/18 09:31 Cozaar - PO 50 mg BID [facility] Administration Methylprednisolone 4 mg 01/30/18 22:00 02/03/18 21:44 Medrol - PO 4 mg HS [facility] Administration Nadolol 40 mg 01/31/18 10:00 02/04/18 09:31 Corgard - PO 40 mg DAILY [facility] Administration Nifedipine 90 mg 02/03/18 10:00 02/04/18 09:32 Procardia Xl - PO 90 mg DAILY [facility] Administration Warfarin Sodium 7.5 mg 02/04/18 18:00 Coumadin - PO DAILY@1800 [facility] ASSESSMENT/PLAN: 1) R pleural effusion --RA with SpO2>90% --PE ruled out --Pulmonology on board --No thoracentesis due to small effusions and loculated 2) Hyperkalemia --2/2 to ESRD --3.1 post dialysis with 4.9 this morning --Likely due to recirculation of arterial flow into venous system without clearance 3) HTN with hypertensive urgency --BP better controlled Continue Procardia 90mg qDaily Continue Cozaar 50 BID Continue Nadolol 40mg qDaily Continue Clonidine 0.3 TD on Wednesday 4) ESRD on HD --T/T/S scheduling to continue --HD can return to normal TTS scheduling --Continue Cinacalcet 30mg HS --Nephrology on board --adding Renvela 1600mg TID 5) PE s/p R lobectomy --Increase Coumadin 7.5mg qDaily --Bridging to Coumadin --INR check tomorrow 6) SLE --Continue Methylprednisolone 4mg PO HS FEN: Fluids: Tolerating PO; avoid due to ESRD Electrolyte Abnormalities: Hyperphosphatemia (adding Renvela 1600mg TID) Nutrition: Renal/Sodium-controlled diet PPX: DVT - On heparin gtt bridging to coumadin Dispo: Bridging to coumadin Case discussed with Dr. Marissa Ward, DO - IM PGY-1 Visit type - Emergency Visit Emergency Visit: No - New Patient This patient is new to me today: No - Critical Care Critical Care patient: No
[2018-02-04] MEDS ORDERED: SODIUM CHLORIDE 250 ML IV PRN (16:36)
--- NOTE | 2018-02-04 16:36 | PN ---
Progress Note (short form) - Note Progress Note: Renal follow up for ESRD on HD Pt seen and examined no acute complaints s/p Hd yesterday Doppler done yesterday Vital Signs Temperature 98.4 F 02/04/18 14:51 Pulse Rate 68 02/04/18 14:51 Respiratory Rate 18 02/04/18 14:51 Blood Pressure 156/78 02/04/18 14:51 O2 Sat by Pulse Oximetry (%) 96 02/04/18 08:00 Intake & Output 02/01/18 02/02/18 02/03/18 02/04/18 23:59 23:59 23:59 23:59 Intake Total 1227 1012 696 700 Output Total 0 0 0 Balance 1227 1012 696 700 Weight 59.647 kg 60.101 kg 59.506 kg 60.838 kg NAD CTA no LE edema CBC, BMP 02/04/18 07:00 02/04/18 07:30 Current Medications Cinacalcet (Sensipar -) 30 mg PO HS [facility] Last Admin: 02/03/18 21:43 Dose: 30 mg Clonidine HCl (Catapres Tts Patch -) 0.3 mg TD Estrada@1000 [facility] Heparin Sodium (Porcine) (Heparin -) 1,000 unit IVPUSH PRN PRN PRN Reason: Heparin Heparin Sodium (Porcine) (Heparin -) 5,000 unit IVPUSH PRN PRN PRN Reason: Heparin Heparin Sodium/Dextrose (Heparin Infusion -) 25,000 units in 500 mls @ 16 mls/ hr IVPB TITR [facility]; Protocol Last Admin: 02/03/18 18:22 Dose: Not Given Losartan Potassium (Cozaar -) 50 mg PO BID [facility] Last Admin: 02/04/18 09:31 Dose: 50 mg Methylprednisolone (Medrol -) 4 mg PO HS [facility] Last Admin: 02/03/18 21:44 Dose: 4 mg Nadolol (Corgard -) 40 mg PO DAILY [facility] Last Admin: 02/04/18 09:31 Dose: 40 mg Nifedipine (Procardia Xl -) 90 mg PO DAILY [facility] Last Admin: 02/04/18 09:32 Dose: 90 mg Warfarin Sodium (Coumadin -) 7.5 mg PO DAILY@1800 [facility] 42 year old woman with PMhx of ESRD on HD, Hx of Renal transplant with chronc allograft nephropathy, Lupus, Hypertension who presented with SOB #ERSD on HD #Hyperkalemia #Hx of PE on A/C #SOB with small pleural effusions #Hypertensoin s/p dialysis yesterday, no acute indication for HD today will plan for next treatment tomorrow doppler result noted, possible stenosis at AV anastamosis however BUN significantly improved s/p HD so no overt recirculation suspected however she should have outpatient vascular evaluation continue coumadin, awaiting therapeutic INR Thank you Jassi Sung DO
[2018-02-04] MEDS: HEPARIN INFUSION - 25,000 UNITS/500 ML INFUS.BAG IVPB SCH (17:29)
[2018-02-04] MEDS: WARFARIN NA 7.5 MG TABLET (FP) PO SCH (17:30)
[2018-02-04] MEDS: SEVELAMER CARBONATE 800 MG TAB (FP) PO SCH (17:30)
--- NOTE | 2018-02-04 17:40 | PN ---
Teaching Attending Note Name of Resident: Gurmeet Ward ATTENDING PHYSICIAN STATEMENT I saw and evaluated the patient. I reviewed the resident's note and discussed the case with the resident. I agree with the resident's findings and plan as documented. SUBJECTIVE: No fever or chills . has no abd pain . no PELLETIER , no SOB . patient bled form AVF site this am OBJECTIVE: NAD CV: RRR Lungs: CTAB. Ext: no edema ASSESSMENT AND PLAN: 42 y/o lady with h/o ESRD, s/p renal transplant with allograft nephropathy, LUPUS, PE s/p R lobectmy , and uncontrolled HTN who presented with worsening SOB and was found to have signs of fluid overload. 1- Volume overload. Due to ESRD - manage with HD. 2- Hyperkalemia: resolved with Hd 3- HTN urgency . BP improved with increasing procardia - cont procardia at 90 mg - cont clonidine patch - cont nadolol - losartan. 5- H/o PE , s/p Lobectomy. - cont heparin gtt and coumadin ( increase dose of coumadin to 7.5 today) 6- HLOC dc pending therapeutic INR
[2018-02-04] MEDS: CINACALCET HCL 30 MG TAB (FP) PO SCH (21:31)
[2018-02-04] MEDS: methylPREDNISolone 4 MG TABLET PO SCH (21:32)
[2018-02-05 08:22] LABS: HEMATOCRIT 28.5 % (32.4-45.2); HEMOGLOBIN 9.5 GM/dL (10.7-15.3); MCH 31.4 pg (25.7-33.7); MCHC 33.5 g/dl (32.0-36.0); MEAN CELL VOLUME 93.9 fl (80-96); MEAN PLT VOLUME 8.5 fl (7.5-11.1); PLATELET COUNT 238 K/MM3 (134-434); RBC 3.04 M/mm3 (3.60-5.2); RDW 14.8 % (11.6-15.6); WHITE BLOOD COUNT 5.1 K/mm3 (4.0-10.0)
[2018-02-05 08:36] LABS: CHLORIDE 97 mmol/L (98-107); POTASSIUM 5.6 mmol/L (3.5-5.1); SODIUM 135 mmol/L (136-145)
[2018-02-05 08:38] LABS: INR 1.93 (0.82-1.09); PROTHROMBIN TIME (PATIENT) 21.8 SEC (9.7-13.0)
[2018-02-05] MEDS: SEVELAMER CARBONATE 800 MG TAB (FP) PO SCH ×3 (08:46→18:37)
[2018-02-05 08:57] LABS: ANION GAP 14 (8-16); BLOOD UREA NITROGEN 54 mg/dL (7-18); CO2 24 mmol/L (21-32); GLUCOSE,RANDOM 82 mg/dL (74-106)
[2018-02-05 09:09] LABS: CALCIUM 7.9 mg/dL (8.5-10.1)
--- NOTE | 2018-02-05 09:28 | PN ---
Progress Note, Physician History of Present Illness: pulmonary alert ,nad on dialysis,-sob - Current Medication List Current Medications: Active Medications Cinacalcet (Sensipar -) 30 mg PO HS [facility] Last Admin: 02/04/18 21:31 Dose: 30 mg Clonidine HCl (Catapres Tts Patch -) 0.3 mg TD Estrada@1000 [facility]E Heparin Sodium (Porcine) (Heparin -) 1,000 unit IVPUSH PRN PRN PRN Reason: Heparin Heparin Sodium (Porcine) (Heparin -) 5,000 unit IVPUSH PRN PRN PRN Reason: Heparin Heparin Sodium/Dextrose (Heparin Infusion -) 25,000 units in 500 mls @ 16 mls/ hr IVPB TITR [facility]; Protocol Last Admin: 02/04/18 17:29 Dose: Not Given Sodium Chloride (Normal Saline -) 250 mls @ 3,000 mls/hr IV PRN PRN PRN Reason: Hypotension during Dialysis Stop: 02/05/18 16:36 Losartan Potassium (Cozaar -) 50 mg PO BID [facility] Last Admin: 02/04/18 21:31 Dose: 50 mg Methylprednisolone (Medrol -) 4 mg PO HS [facility] Last Admin: 02/04/18 21:32 Dose: 4 mg Nadolol (Corgard -) 40 mg PO DAILY [facility] Last Admin: 02/04/18 09:31 Dose: 40 mg Nifedipine (Procardia Xl -) 90 mg PO DAILY [facility] Last Admin: 02/04/18 09:32 Dose: 90 mg Sevelamer Carbonate (Renvela -) 1,600 mg PO TIDCM [facility] Last Admin: 02/04/18 17:30 Dose: Not Given Warfarin Sodium (Coumadin -) 7.5 mg PO DAILY@1800 [facility] Last Admin: 02/04/18 17:30 Dose: 7.5 mg - Objective Vital Signs: Vital Signs Temperature 98.3 F 02/05/18 06:00 Pulse Rate 66 02/05/18 06:00 Respiratory Rate 18 02/05/18 06:00 Blood Pressure 142/73 02/05/18 06:00 O2 Sat by Pulse Oximetry (%) 96 02/04/18 21:00 Constitutional: Yes: Well Nourished, Calm Eyes: Yes: WNL HENT: Yes: WNL Neck: Yes: WNL Cardiovascular: Yes: Regular Rate and Rhythm, S1, S2 Respiratory: Yes: CTA Bilaterally Extremities: Yes: WNL Edema: No Labs: CBC, BMP 02/05/18 07:30 INR, PTT INR 1.93 (0.82-1.09) H 02/05/18 07:30 Assessment/Plan Problem List - Problems (1) Shortness of breath Code(s): R06.02 - SHORTNESS OF BREATH (2) Pleural effusion Code(s): J90 - PLEURAL EFFUSION, NOT ELSEWHERE CLASSIFIED (3) ESRD (end stage renal disease) Code(s): N18.6 - END STAGE RENAL DISEASE (4) SLE (systemic lupus erythematosus) Code(s): M32.9 - SYSTEMIC LUPUS ERYTHEMATOSUS, UNSPECIFIED Assessment/Plan Shortness of breath improved Small Pleural Effusions ESRD on HD Mild Volume Overload Lupus h/o PE/pulmonary infarct s/p RLL lobectomy HTN - continue anticoagulation bridge from heparin gtt to coumadin, target INR 2-3 - HD per renal - O2 to keep SpO2 >90% DR AGUILAR
[2018-02-05 09:32] LABS: CREATININE 9.1 mg/dL (0.55-1.02)
--- NOTE | 2018-02-05 11:47 | PN ---
Progress Note (short form) - Note Progress Note: Renal follow up for ESRD on HD Pt seen and examined during dialysis BP 178/89, access with good flow pt w/o any acute complaints no sob, chest pain, abd pain Vital Signs Temperature 97.7 F 02/05/18 08:30 Pulse Rate 66 02/05/18 11:00 Respiratory Rate 18 02/05/18 11:00 Blood Pressure 166/94 02/05/18 11:00 O2 Sat by Pulse Oximetry (%) 96 02/04/18 21:00 Intake & Output 02/02/18 02/03/18 02/04/18 02/05/18 23:59 23:59 23:59 23:59 Intake Total 1331 105 1035 276 Output Total 0 0 0 Balance 7664 390 1963 276 Weight 60.101 kg 59.506 kg 60.838 kg 61.377 kg NAD CTA no LE edema CBC, BMP 02/05/18 07:30 02/05/18 07:30 Current Medications Cinacalcet (Sensipar -) 30 mg PO HS [facility] Last Admin: 02/04/18 21:31 Dose: 30 mg Clonidine HCl (Catapres Tts Patch -) 0.3 mg TD Q7D@1000 [facility] Heparin Sodium (Porcine) (Heparin -) 1,000 unit IVPUSH PRN PRN PRN Reason: Heparin Heparin Sodium (Porcine) (Heparin -) 5,000 unit IVPUSH PRN PRN PRN Reason: Heparin Heparin Sodium/Dextrose (Heparin Infusion -) 25,000 units in 500 mls @ 16 mls/ hr IVPB TITR [facility]; Protocol Last Admin: 02/04/18 17:29 Dose: Not Given Sodium Chloride (Normal Saline -) 250 mls @ 3,000 mls/hr IV PRN PRN PRN Reason: Hypotension during Dialysis Stop: 02/05/18 16:36 Losartan Potassium (Cozaar -) 50 mg PO BID [facility] Last Admin: 02/04/18 21:31 Dose: 50 mg Methylprednisolone (Medrol -) 4 mg PO HS [facility] Last Admin: 02/04/18 21:32 Dose: 4 mg Nadolol (Corgard -) 40 mg PO DAILY [facility] Last Admin: 02/04/18 09:31 Dose: 40 mg Nifedipine (Procardia Xl -) 90 mg PO DAILY [facility] Last Admin: 02/04/18 09:32 Dose: 90 mg Sevelamer Carbonate (Renvela -) 1,600 mg PO TIDCM [facility] Last Admin: 02/04/18 17:30 Dose: Not Given Warfarin Sodium (Coumadin -) 7.5 mg PO DAILY@1800 [facility] Last Admin: 02/04/18 17:30 Dose: 7.5 mg 42 year old woman with PMhx of ESRD on HD, Hx of Renal transplant with chronc allograft nephropathy, Lupus, Hypertension who presented with SOB #ERSD on HD #Hyperkalemia #Hx of PE on A/C #SOB with small pleural effusions #Hypertensoin pt tolerating dialysis well today access working well, mildly elevated arterial pressure can resume HD on outpatient TTS schedule Continue antihypertensives re-ordered clonidine patch continue coumadin as per primary Thank you Jassi Sung DO
[2018-02-05] MEDS ORDERED: cloNIDine-TTS 0.3 MG /24 HRS PATCH.TDWK TD SCH (12:15)
[2018-02-05 12:42] VITALS: BP 182/97; PULSE 67; TEMP 98.2
--- NOTE | 2018-02-05 13:09 | PN ---
Teaching Attending Note Name of Resident: Gurmeet Ward ATTENDING PHYSICIAN STATEMENT I saw and evaluated the patient. I reviewed the resident's note and discussed the case with the resident. I agree with the resident's findings and plan as documented. SUBJECTIVE: no fever or chills . has no Abd pain . no PELLETIER or SOB OBJECTIVE: NAD, getting HD CV: RRR Lungs: CTAB. Ext: no edema ASSESSMENT AND PLAN: 42 y/o lady with h/o ESRD, s/p renal transplant with allograft nephropathy, LUPUS, PE s/p R lobectmy , and uncontrolled HTN who presented with worsening SOB and was found to have signs of fluid overload. 1- Volume overload. Due to ESRD - manage with HD. 2- Hyperkalemia: resolved with Hd 3- HTN urgency . BP improved with increasing procardia - cont procardia at 90 mg - cont clonidine patch , change today - cont nadolol - losartan. 5- H/o PE , s/p Lobectomy in 2013 - INR 1.97. OK to continue with po AC as PE was long time ago. This was d/w pulm by resident - will dc on 7.5 mg of coumadin - Next INR check on Wednesday, to be followed by her crm developer. 6- DC home today after HD
[2018-02-05] MEDS ORDERED: PT OWN MED DRAWER 7, Y5N ONE ×3 (13:32→14:27)
[2018-02-05] MEDS: NIFEdipine E.R. 30 MG TABLET (FP) PO SCH (13:33)
[2018-02-05] MEDS: LOSARTAN POTASSIUM 50 MG TABLET (FP) PO SCH (13:43)
[2018-02-05] MEDS: NADOLOL 40 MG TABLET (FP) PO SCH (13:44)
--- NOTE | 2018-02-05 15:21 | DS ---
Physical Exam: SUBJECTIVE: No acute events overnight. No complaints today. Dialysis today. OBJECTIVE: Vital Signs Period Temp Pulse Resp BP Sys/William Pulse Ox Last 24 Hr 97.7 F-98.3 F 60-85 18-19 131-182/72-99 96 PHYSICAL EXAM GENERAL: NAD, awake, alert, and fully oriented HEENT: EOMI, FIDENCIO, moist mucosa LUNGS: Diminished breath sounds RLL (unchanged), no wheezes, no crackles, no accessory muscle use. HEART: RRR, S1, S2 without murmur ABDOMEN: Soft, NT/ND, normoactive bowel sounds, no guarding, no hepatomegaly EXTREMITIES: 2+ DP pulses, warm, no edema. PSYCH: Normal mood, normal affect. SKIN: Warm, dry, no rashes or lesions noted LABS Laboratory Results - last 24 hr 02/05/18 02/05/18 02/05/18 07:30 07:30 07:30 WBC 5.1 RBC 3.04 L Hgb 9.5 L Hct 28.5 L MCV 93.9 MCH 31.4 MCHC 33.5 RDW 14.8 Plt Count 238 MPV 8.5 D PT with INR 21.80 H INR 1.93 H PTT (Actin FS) 67.5 H Sodium Potassium Chloride Carbon Dioxide Anion Gap BUN Creatinine Random Glucose Calcium 02/05/18 07:30 WBC RBC Hgb Hct MCV MCH MCHC RDW Plt Count MPV PT with INR INR PTT (Actin FS) Sodium 135 L Potassium 5.6 H Chloride 97 L Carbon Dioxide 24 Anion Gap 14 BUN 54 H Creatinine 9.1 H* Random Glucose 82 Calcium 7.9 L HOSPITAL COURSE: Date of Admission:01/30/18 Date of Discharge: 02/05/18 Pt was admitted on 01/30/18 due to increased shortness of breath for the prior 3 days especially noted during sleeping and without significant decrease in exercise tolerance. Pt was found to have a R lobe effusion and it was decided to admit her to med-surg for possible therapeutic thoracentesis. Pt underwent CTA Chest to evaluate her effusion and had her AC held briefly due to risk of hemothorax. Pt 's Hgb remained stable from 11.2 to 11.1 and pt was restarted on heparin gtt until decision regarding thoracentesis was made. CTA resulted in loculated effusion with plate-like atelectasis noted and IR believed that due to the loculation a thoracentesis would not be efficacious for therapy. AT this point, pt began bridging to therapeutic INR with Coumadin 5mg daily. Throughout her stay pt's symptoms resolved, however, unfortunately, pt was found to be in hypertensive urgency on day 3 of visit. Pt noted recent changes in her regiment by PCP, and her procardia was increased to 90mg from 60mg with better control. Pt was also found to be hyperkalemic (max 6.5 without EKG changes) requiring her to engage in dialysis and eventually bridge back to her normal //Wed schedule. Finally, pt's INR plateau'd at 1.69 with Coumadin 5mg and she was increased to 7.5mg which yielded an INR of 1.93. Pt is currently being discharged with resolution of shortness of breath symptoms with instructions to continue her normal //Wednesday dialysis schedule. Her Wednesday (02/05) dialysis was performed here. Her last INR was 1.93 (previous day 1.69) with instructions to continue Coumadin 7.5mg PO qDaily. Pt is instructed and given script for an INR check with her dialysis on Wednesday. In addition, she understands to continue her Procardia 90mg qDaily PO for which a prescription has been sent to her pharmacy. Additional imagin01/30/18 CXR: Scoliosis. Large heart. Right base changes 01/30/18 CTA: No evidence of PE. Diminished contrast opacification of RLL branches physiologic given presence of sutures and airspace opacites in region Mild interstitial pulmonary edema suggested with loculated fluid in the R minor fissure. Distended azygous vein suggests fluid overload Nonspecific enlarged retrocrural LN Cardiomegaly with small pericardial effusion and mild coronary artery calcific atherosclerosis 01/31/18 CXR: No significant change from previous. Post-surgical R base changes. Focal right base density which could represent scarring v. atelectasis 02/03/18 Duplex Upper extremity: L wrist AV fistula with patent inflow and outflow veins and apparent increased velocity and turbulence at the AV anastomosis which could be in part due to angulation and/or stenosis. Correlate with hemodynamic parameters during dialysis --Peak inflow velocity 2.72 cm/s --Turbulent flow at the AV anastomosis with peak systolic velocity 641 cm/ s --Antegrade flow seen in artery distal to anastomosis with peak velocity 1.17 cm/s --Proximal outflow vein with peak velocity 2.4 cm/s --Volume flow in upper arm ranges 200-583 mL/min Minutes to complete discharge: 35 Discharge Summary Reason For Visit: SOB, PLEURAL EFFUSION Current Active Problems Shortness of breath (Acute) ESRD (end stage renal disease) (Chronic) History of pulmonary embolus (PE) (Chronic) Pleural effusion (Chronic) SLE (systemic lupus erythematosus) (Chronic) Condition: Improved - Instructions Diet, Activity, Other Instructions: You were seen here due to your shortness of breath and were found to have some fluid on your lungs not previously there. You were seen by a photography coordinator and your fluid was too small to be drained via a needle. Your echocardiogram showed that your heart had no deficits that would need to be followed up at this time. MEDICATIONS: We increased your Coumadin 7.5mg ONCE daily and you should continue taking this --Your next INR check is Wednesday with your dialysis and your goal INR is between 2-3 We also increased your Procardia and you will receive a new prescription of Procardia 90mg ONCE per day --These new medications have been sent to your pharmacy ([facility]) Please continue your Renvela 1600mg Three times per day, your Clonidine 0.3 patch ONCE weekly, your Nadolol 40mg ONCE daily, and your Losartan 50mg TWICE daily as you have been Please continue your other medications as you have been FOLLOW-UPs: Please follow-up with Dr. Bonilla regarding what had happened here Please follow-up with Dr. Castano and your regular dialysis center per your normal schedule (Wednesday//Wednesday) --Again you will need INR checks Referrals: Omaira Levi [Other] - 1 Week Nahomy Simon [Primary Care Provider] - 1 Week Disposition: HOME - Home Medications Comprehensive Discharge Medication List: Ambulatory Orders Cinacalcet HCl [Sensipar] 30 mg PO HS 01/30/18 Clonidine Patch [Catapres Tts Patch -] 0.3 mg TD WEEKLY 01/30/18 Losartan Potassium [Cozaar -] 50 mg PO BID 01/30/18 Methylprednisolone [Medrol -] 4 mg PO HS 01/30/18 Nadolol 40 mg PO DAILY 05/27/18 Miscellaneous Medical Supply [Outpatient Order] 1 each ASDIR #1 misc Miscellaneous Medical Supply [Outpatient Order] 1 each ASDIR #1 misc Nifedipine ER [Procardia XL -] 90 mg PO DAILY #30 tab.[id number] 02/05/18 Sevelamer Carbonate [Renvela -] 1,600 mg PO TIDCM tab 02/05/18 Warfarin Na [Coumadin -] 7.5 mg PO DAILY@1800 #30 tablet 02/05/18 This patient is new to me today: No Emergency Visit: No Critical Care patient: No - Discharge Referral Referred to [facility] No
[2018-02-05] MEDS: WARFARIN NA 7.5 MG TABLET (FP) PO SCH (18:38)
== END 2018-02-05 17:45 | disposition home or self-care (01) | DRG 186 ==
LOC: JER 14:07 → JERBED 21:00 → J6S 23:11
PROVIDERS: ADMIT Internal Medicine; ATTEND Internal Medicine
PROC: 5A1D90Z Performance of Urinary Filtration, Continuous, Greater than 18 hours Per Day (ICD-10-PCS; principal; 2018-02-03)
DX: J90 Pleural effusion, not elsewhere classified (principal); N18.6 End stage renal disease; I12.0 Hypertensive chronic kidney disease with stage 5 chronic kidney disease or end stage renal disease; J98.11 Atelectasis; I31.3 Pericardial effusion (noninflammatory); M32.9 Systemic lupus erythematosus, unspecified; Z99.2 Dependence on renal dialysis; E87.5 Hyperkalemia; E87.70 Fluid overload, unspecified; I16.0 Hypertensive urgency
CPT/HCPCS: 36415; 71045-TC-FY; 71275-TC; 80048; 80053; 82550; 83735; 84100; 84132; 84484; 84703; 85025; 85027; 85610; 85651; 85730; 86038; 86140; 86225; 86704; 86706; 86708; 87040; 87340; 93005; 93010; 93306-TC; 93971; 99283-25; J1644

== ENCOUNTER 2021-05-18 01:06 | Observation (INO) | payer OTHER ==
[2021-05-18 01:27] VITALS: BMI 26.6
[2021-05-18] MEDS ORDERED: ACETAMINOPHEN 325 MG TABLET (FP) PO ONE (02:07)
[2021-05-18] MEDS ORDERED: ACETAMINOPHEN 325 MG TABLET (FP) ONE (02:46)
[2021-05-18 03:18] LABS: BASO % 1.1 % (0-2.0); EOS % 0.4 % (0-4.5); HEMATOCRIT 42.2 % (32.4-45.2); HEMOGLOBIN 14.8 GM/dL (10.7-15.3); LYMPH % 21.4 % (8-40); MCH 30.7 pg (25.7-33.7); MEAN CELL VOLUME 87.6 fl (80-96); MONO % 10.1 % (3.8-10.2); PLATELET COUNT 417 10^3/uL (134-434); RBC 4.81 M/mm3 (3.60-5.2); RDW 13.5 % (11.6-15.6)
[2021-05-18 03:29] LABS: PROTHROMBIN TIME (PATIENT) 62.2 SEC (9.7-13.0)
[2021-05-18 03:41] LABS: EPI CELLS 13 /uL (0-25.1); HYALINE CASTS 0 /uL (0-3.1); PH,URINE 5.5 (5.0-8.0); URINE APPEARANCE CLEAR; URINE BACTERIA 48 /uL (0-1359); URINE BILIRUBIN NEGATIVE (NEGATIVE); URINE COLOR YELLOW; URINE GLUCOSE (UA) NEGATIVE (NEGATIVE); URINE KETONE NEGATIVE (NEGATIVE); URINE LEUK ESTERASE 1+ (NEGATIVE); URINE NITRITE NEGATIVE (NEGATIVE); URINE PROTEIN NEGATIVE (NEGATIVE); URINE RBC 9 /uL (0-23.9); URINE UROBILINOGEN 0.2 mg/dL (0.2-1.0); URINE WBC 46 /uL (0-25.8)
[2021-05-18 03:42] LABS: ALBUMIN 3.6 g/dl (3.4-5.0); CALCIUM 10.1 mg/dL (8.5-10.1)
[2021-05-18 03:43] LABS: BLOOD UREA NITROGEN 32.3 mg/dL (7-18)
[2021-05-18 03:46] LABS: CREATININE 1.3 mg/dL (0.55-1.3)
[2021-05-18 03:47] LABS: BILIRUBIN,TOTAL 0.7 mg/dL (0.2-1); TOT PROT 7.6 g/dl (6.4-8.2)
[2021-05-18 03:49] LABS: INR 5.4 (0.83-1.09)
[2021-05-18 06:00] LABS: HEMATOCRIT 41.6 % (32.4-45.2); HEMOGLOBIN 14.4 GM/dL (10.7-15.3); MCH 30.8 pg (25.7-33.7); MCHC 34.6 g/dl (32.0-36.0); MEAN CELL VOLUME 88.9 fl (80-96); MEAN PLT VOLUME 7.6 fl (7.5-11.1); PLATELET COUNT 418 10^3/uL (134-434); RBC 4.67 M/mm3 (3.60-5.2); RDW 13.2 % (11.6-15.6); WHITE BLOOD COUNT 11.5 K/mm3 (4.0-10.0)
[2021-05-18 06:34] VITALS: BP 154/84; PULSE 65; TEMP 98.5
[2021-05-18 06:34] LABS: PROTHROMBIN TIME (PATIENT) 62.7 SEC (9.7-13.0)
[2021-05-18 08:37] LABS: INR 5.44 (0.83-1.09)
== END 2021-05-18 07:20 | disposition left against medical advice (07) ==
LOC: JER 01:06 → JERBED 05:01
PROVIDERS: ADMIT Internal Medicine; ATTEND Internal Medicine
DX: Z04.1 Encounter for examination and observation following transport accident (principal); R10.11 Right upper quadrant pain; V49.49XA Driver injured in collision with other motor vehicles in traffic accident, initial encounter; Y93.89 Activity, other specified; Y92.89 Other specified places as the place of occurrence of the external cause; M32.9 Systemic lupus erythematosus, unspecified; I12.0 Hypertensive chronic kidney disease with stage 5 chronic kidney disease or end stage renal disease; N18.6 End stage renal disease; N17.9 Acute kidney failure, unspecified; Z94.0 Kidney transplant status; Z86.711 Personal history of pulmonary embolism; Z79.01 Long term (current) use of anticoagulants; Z88.8 Allergy status to other drugs, medicaments and biological substances
CPT/HCPCS: 36415; 71045-TC-FY; 71101-TC-RT-FY; 74176-TC; 80053; 81003; 84703; 85025; 85027; 85610; 86850; 86900; 86901; 87077; 87086; 93005; 93010; 99285-25; G0378

== ENCOUNTER 2021-10-10 21:09 | Emergency (ER) | payer SELFPAY ==
[2021-10-10 21:30] VITALS: BMI 22.4
[2021-10-10] MEDS ORDERED: LIDOCAINE PATCH REMOVAL MC SCH (22:00)
[2021-10-10] MEDS ORDERED: LIDOCAINE 5% TOPICAL PATCH TP ONE (23:43)
[2021-10-10] MEDS ORDERED: ACETAMINOPHEN 500 MG TABLET (FP) PO ONE (23:43)
[2021-10-10] MEDS ORDERED: LIDOCAINE 5% TOPICAL PATCH ONE (23:51)
[2021-10-10] MEDS ORDERED: ACETAMINOPHEN 325 MG TABLET (FP) ONE (23:52)
[2021-10-11 01:31] VITALS: BP 117/67; PULSE 63; TEMP 98.4
[2021-10-11 01:42] LABS: INR 2.76 (0.83-1.09); PROTHROMBIN TIME (PATIENT) 32.1 SEC (9.7-13.0)
[2021-10-11 01:45] LABS: ACTIVATED PTT 55.5 SECONDS (25.2-36.5)
== END 2021-10-11 01:50 | disposition home or self-care (01) ==
LOC: JER 21:09
DX: Z04.3 Encounter for examination and observation following other accident (principal); W19.XXXA Unspecified fall, initial encounter; Y92.9 Unspecified place or not applicable
CPT/HCPCS: 36415; 70450-TC; 72220-TC-FY; 73070-TC-RT-FY; 85610; 85730; 99284-25

== ENCOUNTER 2022-12-17 07:00 | Emergency (ER) | payer OTHER ==
[2022-12-17 07:22] VITALS: BP 141/83; PULSE 72; RESP 18; TEMP 99.4; BMI 21.2
[2022-12-17] MEDS ORDERED: ACETAMINOPHEN 1000 MG/100 ML BAG IVPB ONE (07:47)
[2022-12-17] MEDS ORDERED: SODIUM CHLORIDE 0.9% 500 ML INFUS.BAG IV ONE (07:47)
[2022-12-17] MEDS ORDERED: ACETAMINOPHEN INJECTION 100 ML IVPB ONE (08:24)
[2022-12-17 09:04] LABS: URINE APPEARANCE CLEAR; URINE BILIRUBIN NEGATIVE (NEGATIVE); URINE COLOR YELLOW; URINE GLUCOSE (UA) NEGATIVE (NEGATIVE); URINE KETONE NEGATIVE (NEGATIVE); URINE LEUK ESTERASE NEGATIVE (NEGATIVE); URINE NITRITE NEGATIVE (NEGATIVE); URINE PROTEIN NEGATIVE (NEGATIVE); URINE UROBILINOGEN 0.2 mg/dL (0.2-1.0)
[2022-12-17 09:06] LABS: BASO % 0.6 % (0-2.0); EOS % 1.3 % (0-4.5); HEMATOCRIT 40.9 % (32.4-45.2); HEMOGLOBIN 14.1 GM/dL (10.7-15.3); LYMPH % 23.8 % (8-40); MCH 29.6 pg (25.7-33.7); MCHC 34.4 g/dl (32.0-36.0); MEAN CELL VOLUME 86.1 fl (80-96); MEAN PLT VOLUME 7.8 fl (7.5-11.1); NEUT % 55.3 % (42.8-82.8); PLATELET COUNT 436 10^3/uL (134-434); RBC 4.75 M/mm3 (3.60-5.2); RDW 14.1 % (11.6-15.6); WHITE BLOOD COUNT 6.3 K/mm3 (4.0-10.0)
[2022-12-17 09:13] LABS: INR 2.44 (0.83-1.09)
[2022-12-17 09:28] LABS: ALBUMIN 3.5 g/dl (3.4-5.0); BLOOD UREA NITROGEN 17.4 mg/dL (7-18); CALCIUM 9.8 mg/dL (8.5-10.1)
[2022-12-17 09:30] LABS: CREATININE 1.1 mg/dL (0.55-1.3)
[2022-12-17 09:32] LABS: BILIRUBIN,TOTAL 0.8 mg/dL (0.2-1); TOT PROT 7.3 g/dl (6.4-8.2)
[2022-12-17] MEDS ORDERED: SODIUM CHLORIDE FOR INHALATION 3 ML VIAL.NEB IH ONE (11:51)
[2022-12-17] MEDS ORDERED: LIDOCAINE VISCOUS 2% ORAL/TOP 15 ML UNIT-DOSE CUP MM ONE (11:51)
[2022-12-17] MEDS ORDERED: guaiFENesin 200 MG/10 ML 10 ML UNIT-DOSE CUPS PO ONE (11:51)
[2022-12-17] MEDS ORDERED: guaiFENesin 200 MG/10 ML 10 ML UNIT-DOSE CUPS ONE (11:56)
[2022-12-17] MEDS ORDERED: LIDOCAINE VISCOUS 2% ORAL/TOP 15 ML UNIT-DOSE CUP ONE (11:56)
[2022-12-17] MEDS ORDERED: guaiFENesin/CODEINE 10 ML UNIT-DOSE CUPS PO ONE (12:00)
[2022-12-17] MEDS ORDERED: guaiFENesin/CODEINE 10 ML UNIT-DOSE CUPS ONE (12:02)
== END 2022-12-17 13:31 | disposition home or self-care (01) ==
LOC: JER 07:00
PROC: 3E033GC Introduction of Other Therapeutic Substance into Peripheral Vein, Percutaneous Approach (ICD-10-PCS; principal; 2022-12-17)
PROC: 3E0F7GC Introduction of Other Therapeutic Substance into Respiratory Tract, Via Natural or Artificial Opening (ICD-10-PCS; 2022-12-17)
DX: J47.0 Bronchiectasis with acute lower respiratory infection (principal); R06.02 Shortness of breath; R07.0 Pain in throat; R50.9 Fever, unspecified; R05.9 Cough, unspecified; R19.7 Diarrhea, unspecified; R07.89 Other chest pain; R10.13 Epigastric pain; J34.89 Other specified disorders of nose and nasal sinuses; Z20.822 Contact with and (suspected) exposure to COVID-19
CPT/HCPCS: 0241U-QW; 36415; 71045-TC-FY; 74176-TC; 80053; 80197; 81003; 83605; 84484; 85025; 85610; 85730; 87040; 87086; 93005; 93010; 99285-25